=== PATIENT | female | born 1940 | race Caucasian/White ===

== ENCOUNTER 2025-06-25 15:57 | Outpatient (OUT) | payer MEDICARE, SELFPAY ==
--- OUTSIDE RECORDS SUMMARY | 2025-06-14 11:30 | XMS_ITS | Encounter Summary ---
Author Organization [facility] Address [address] [place] [address] Care Team Providers Care Repacker Name Role Phone Tari Bello MD Primary Care Provider [phone] Daniel Ye CNP Unavailable [phone] Reason for Referral * Imaging (Routine) - AuthorizedSpecialtyDiagnoses / ProceduresReferred By ContactReferred To ContactCardiology Diagnoses Nonrheumatic aortic valve stenosis Procedures Transesophageal echo (OLIVER) Sanjay Delarosa MD [address] [facility] [address] [facility] [place] [address] Phone: tel: fax: [facility] [address] [place] [address] Phone: tel: fax: Referral IDStatusReasonStart DateExpiration DateVisits RequestedVisits [id number] Perform Procedure Encounter Details DateTypeDepartmentCare Team (Latest Contact Info)Cdggkocweob06/17/2025 11:30 AM EDTFollow-Up [facility] [address] [address] Sanjay Delarosa MD [address] [facility] [address] [facility] [place] [address] Nonrheumatic aortic valve stenosis (Primary Dx); Shortness of breath; Other chest pain; Mixed hyperlipidemia; Primary hypertension Social History Tobacco UseTypesPacks/DayYears UsedDateSmoking Tobacco: NeverPassive Smoke Exposure: NeverSmokeless Tobacco: NeverAlcohol UseStandard Drinks/WeekComments Not Currently0 (1 standard drink = 0.6 oz pure alcohol)occasionally has some wine 2x monthHumiliation, Afraid, Rape, and Kick questionnaireAnswerDate RecordedWithin the last year, have you been afraid of your partner or ex-partner?No02/29/2024Emotionally AbusedNot on file02/29/2024hysically Abused Not on file02/29/2024Sexually AbusedNot on file02/29/2024HQ-2AnswerDate RecordedPatient Health Questionnaire-2 Difoz639CommentsNoSex and Gender InformationValueDate RecordedSex Assigned at DzjirVixysn56/15/2024 6:35 AM ESTLegal OubLbshqj08/29/2022 9:32 PM EDTGender JhphwoojJsirff35/15/2024 6:35 AM ESTSexual OrientationHeterosexual or Hzxhnfva58/15/2024 6:35 AM ESTdocumented as of this encounter Last Filed Vital Signs Vital SignReadingTime TakenCommentsBlood Ckpzdklx387/ 11:37 AM EDT Uauhb658806/14/2025 11:37 AM EDTTemperature--Respiratory Rate--Oxygen Saturation 100%06/14/2025 11:37 AM EDTInhaled Oxygen Concentration--Weight--Mwbqra451 cm (5' 3 )06/14/2025 11:37 AM EDTBody Mass Index--documented in this encounter Functional Status * BPAnswerDate of ZtaqwssrfqSdfphz736 11:37 AM EDTCBrittany hernandez MA * PulseAnswerDate of UcdeuzavldRwdoaj4516/ 11:37 AM Brittany Nunez MA * Patient PositionAnswerDate of VvhrldxlwvKkkcmeQfiasyx96/17/2025 11:37 AM EDT Brittany Araujo MA * BPAnswerDate of QdjfbdokggIcjxvz263/6806/14/2025 11:37 AM Brittany Nunez MA * PulseAnswerDate of DoazbrcznyDzhnnp9532 11:37 AM Brittany Nunez MA * AcA5QikwwmEtnt of QibnawjdyrAazwkb93326 11:37 AM Brittany Nunez MA * BP LocationAnswerDate of AssessmentAuthorRight arm06/14/2025 11:37 AM EDT Brittany Araujo MA * Patient PositionAnswerDate of GcrazaoinkHcxjjdRdmyhge85/17/2025 11:37 AM EDT Brittany Araujo MA documented as of this encounter Progress Notes * Sanjay Delarosa MD - 06/14/2025 11:30 AM EDT Images from the original note were not included. [place] [facility] Subjective Humera oRwe is a 84 y.o. year old female patient being seen for Valve replacement surgery per [facility] Yearly. Patient complains of chest pain, SOB/MORRISSEY, fatigue, leg swelling, with compression stockings, heart racing/palpitations, bruising/bleeding/discoloration, dizziness/lightheaded. Patient states over the last 6 months all of her symptoms have greatly increased. Patient has bladder stimulator.Patient daughter recently from a heart attach in April. Problem List[1] Family History[2] Social History[3] HPI This is a 84-year-old woman who is seen today in follow-up. This is the first time I am meeting her. The visit is in the presence of her 2 nieces. She is has a prior history of hypertension on treatment. She has history of aortic valve stenosis seems to have been progressing and on most recent echocardiogram in December 2024 she was found to have severe low-flow low gradient aortic valve stenosis. She reports that she has symptoms of chest pain located to the left side of the chest that last several minutes and subside spontaneously. She has shortness of breath on exertion NYHA class III symptoms. She has bilateral lower extremity edema. No syncope. Review of Systems Constitutional: Positive for malaise/fatigue. Cardiovascular: Positive for chest pain, dyspnea on exertion, irregular heartbeat, leg swelling andpalpitations. Hematologic/Lymphatic: Positive for bleeding problem. Objective Visit Vitals BP 156/68 (BP Location: Right arm, Patient Position: Sitting) Pulse 52 Ht 1.6 m (5' 3 ) SpO2 100% BMI 28.34 kg/m?? OB Status Hysterectomy Smoking Status Never BSA 1.8 m?? Physical Exam Constitutional: Appearance: She is well-developed. She is not ill-appearing. HENT: Head: Normocephalic and atraumatic. Nose: Nose normal. Eyes: General: No scleral icterus. Pupils: Pupils are equal, round, and reactive to light. Neck: Thyroid: No thyromegaly. Vascular: No JVD. Cardiovascular: Rate and Rhythm: Normal rate and regular rhythm. Pulses: Radial pulses are 2+ on the right side and 2+ on the left side. Heart sounds: Murmur heard. Systolic (RUSB, apex) murmur is present with a grade of 4/6. No friction rub. No gallop. Pulmonary: Effort: Pulmonary effort is normal. No respiratory distress. Breath sounds: Normal breath sounds. No wheezing or rales. Chest: Chest wall: No tenderness. Abdominal: General: Bowel sounds are normal. There is no distension. Palpations: Abdomen is soft. Tenderness: There is no abdominal tenderness. Musculoskeletal: General: No swelling. Cervical back: Neck supple. Skin: General: Skin is warm and dry. Neurological: General: No focal deficit present. Mental Status: She is alert and oriented to person, place, and time. Psychiatric: Mood and Affect: Mood normal. Behavior: Behavior is cooperative. Judgment: Judgment normal. Allergies Allergies[4] Medications Current Medications[5] Recent Labs No visits with results within 6 Month(s) from this visit. Latest known visit with results is: Admission on 04/10/2024, Discharged on 04/10/2024 Component Date Value Color, Urine 04/10/2024 Yellow Clarity, Urine 04/10/2024 Slightly Cloudy (A) pH, Urine 04/10/2024 7.0 Leukocytes, Urine 04/10/2024 Large (A) Nitrite, Urine 04/10/2024 Positive (A) Protein, Urine 04/10/2024 Negative Glucose, Urine 04/10/2024 Negative Bilirubin, Urine 04/10/2024 Negative Specific Dalton, Urine 04/10/2024 1.004 (L) Ketones, Urine 04/10/2024 Negative Blood, Urine 04/10/2024 Negative RBC, Urine 04/10/2024 0-2 (A) WBC, Urine 04/10/2024 21-50 (A) Squamous Epithelial, Uri* 04/10/2024 Occasional Blood testing 12/06/2024: Hemoglobin 12.4, platelets 168, creatinine 1.18, BUN 20, potassium 4.0, BNP 360. Imaging and other tests Echocardiogram 01/07/2025: Mild concentric left ventricular hypertrophy, ejection fraction equals 65-70%. A variety of Doppler measurements indicate normal left ventricular diastolic function. The aortic valve peak velocity is 372 cm/s. The aortic valve maximum pressure gradient is 55 mmHg. The aortic valve mean gradient is 23 mmHg. Severe valvular aortic stenosis. The aortic valve area is calculated to be 0.7 cm??. There is mild mitral regurgitation. Compared to prior echo report of 12/29/2023, changes are noted. The aortic stenosis has progressed from moderate to severe, consider valve replacement. ECG 12/27/2023: Sinus bradycardia Left axis deviation Right bundle branch block Abnormal ECG Assessment/Plan Diagnoses and all orders for this visit: Nonrheumatic aortic valve stenosis - Basic metabolic panel; Future - Case Request [place] [facility]: Coronary angiography, Left heart cath, Right heart cath - CBC and differential; Future - Transesophageal echo (OLIVER); Future Shortness of breath - Basic metabolic panel; Future - Case Request [place] [facility]: Coronary angiography, Left heart cath, Right heart cath - CBC and differential; Future Other chest pain - Basic metabolic panel; Future - Case Request [place]: Coronary angiography, Left heart cath, Right heart cath - CBC and differential; Future Mixed hyperlipidemia - lovastatin (Mevacor) 40 mg tablet; Take 1 tablet (40 mg) by mouth at bedtime. Primary hypertension She has significant symptoms of chest pain and shortness of breath NYHA class III. She seems to have progressed aortic valve stenosis to severe. According to the most recent transthoracic echocardiogram in December 2024 the aortic valve stenosis with was consistent with low-flow low gradient stage D3. On exam findings are consistent with severe stenosis. I explained to her that we need to further investigate and confirm the severity of the aortic valvestenosis. I am going to proceed with cardiac catheterization [right heart catheterizations, coronary angiography, left heart catheterization, aortic valve study] and transesophageal echocardiogram. Once we confirm the severity of the aortic valve stenosis I explained to her that we can proceed withaortic valve replacement as indicated. I had a long discussion with her regarding the management of her severe stage D3 symptomatic aorticvalve stenosis. I discussed with her that this condition leads to limited long-term survival. I indicated to her that aortic valve replacement is recommended. I discussed TAVR and SAVR including the risks and benefits of both modalities. In particular I went over TAVR procedure in details. I discuss ed the potential risks with TAVR including stroke, ID, and . I also discussed the risk of requiring permanent pacemaker after TAVR. She does have right bundle branch block on prior ECG and that increases the risk of pacemaker requirement after TAVR. In addition I indicated that there is a small chance of needing to convert to open surgical procedure due to any complications during or after TAVR procedure. In my opinion, I think that she is a higher risk patient for SAVR and is better served by TAVR. I explained to her that once aortic valve stenosis is confirmed to be severe, we will proceed with full evaluation including CT scans for assessment of the aortic annulus, ascending aorta as well as the aortoiliac conduits. In addition we will check carotid ultrasound and pulmonary function testing. I will then refer her to cardiothoracic surgery for opinion. I told her that once the workup is completed we will have a multidisciplinary discussion between interventional cardiology and cardiothoracic surgery regarding the best recommended treatment option and this option will be presented to her. she understands and agrees to proceed with the above. No follow-ups on file. Sanjay Delarosa MD [1] Patient Active Problem List Diagnosis Incomplete bladder emptying Atonic bladder Weak urinary stream Constipation Urge incontinence of urine Umbilical hernia without obstruction and without gangrene Preop cardiovascular exam Bruit of left carotid artery Aortic ejection murmur Primary hypertension Mixed hyperlipidemia Ventral hernia without obstruction or gangrene Nonrheumatic aortic valve stenosis Acquired hypothyroidism Adrenal hyperplasia Ankle pain Arthritis Atonic neurogenic bladder Atrophic vaginitis Bilateral carotid artery stenosis Bilateral tinnitus Bundle branch block, right Deafness Elevated alkaline phosphatase level Feeling of incomplete bladder emptying Female stress incontinence Head injury Hastings-Walker grade 2 rectocele History of left breast cancer Hyperthyroidism Neuropathy Obesity Osteopenia, senile Primary insomnia Renal cyst Stage 3b chronic kidney disease (CMS/HCC) Urinary retention Uses brace Shortness of breath Other chest pain [2] No family history on file. [3] Social History Tobacco Use Smoking status: Never Passive exposure: Never Smokeless tobacco: Never Vaping Use Vaping status: Never Used Substance Use Topics Alcohol use: Not Currently Comment: occasionally has some wine 2x month Drug use: Never [4] Allergies Allergen Reactions Sodium Dizziness Ascorbic Acid Other Reaction(s): Unknown Clindamycin Hives Other reaction(s): Hives Other Reaction(s): Hives, hives Clonidine Dizziness Other reaction(s): Other: See Comments Dizziness Other Reaction(s): dizziness, Other: See Comments Dizziness Milk Unknown Other Reaction(s): Unknown Niacin Other reaction(s): syncope Other Reaction(s): syncope Nitroglycerin Other reaction(s): Unknown Other Reaction(s): Unknown Sodium Iodide Other reaction(s): Other: See Comments, vertigo Vertigo Other Reaction(s): Other: See Comments, vertigo Vertigo Triamterene Hives Triamterene-Hydrochlorothiazid Hives Other reaction(s): hives Other Reaction(s): hives, hives [5] Current Outpatient Medications: amLODIPine (Norvasc) 2.5 mg tablet, Take 1 tablet by mouth in the morning., Disp: , Rfl: ascorbic acid (Vitamin C) 500 mg tablet, Take 500 mg by mouth in the morning., Disp: , Rfl: aspirin 325 mg tablet, Take 325 mg by mouth if needed., Disp: , Rfl: calcium carbonate-vitamin D3 600 mg-5 mcg (200 unit) tablet, 1 tablet., Disp: , Rfl: carvedilol (Coreg) 3.125 mg tablet, TAKE TABLET BY MOUTH DIRECTED TWICE DAILY, Disp: , Rfl: cholecalciferol (Vitamin D-3) 25 MCG (1000 UT) capsule, Take 1 capsule every day by oral route., Disp: , Rfl: cod liver oiL capsule, Take by mouth., Disp: , Rfl: coenzyme Q-10 (Co Q-10) 10 mg capsule, Take by mouth., Disp: , Rfl: diphenhydrAMINE (BENADryl) 50 mg tablet, Take 50 mg by mouth if needed at bedtime for itching., Disp: , Rfl: docusate sodium (Colace) 100 mg capsule, Take by mouth., Disp: , Rfl: estradiol (Estrace) 0.01 % (0.1 mg/gram) vaginal cream, Insert 1 g twice a week by vaginal route donot use applicator, Disp: 42.5 g, Rfl: 0 ibuprofen 200 mg tablet, Take 200 mg by mouth every 6 (six) hours if needed for mild pain (1-3 painscore)., Disp: , Rfl: levothyroxine (Synthroid, Levoxyl) 75 mcg tablet, Take 1 tablet by mouth in the morning., Disp: , Rfl: lisinopril 10 mg tablet, 10 mg in the morning and at bedtime., Disp: , Rfl: multivit-min/ferrous fumarate (MULTI VITAMIN ORAL), 1 (one) time each day at the same time., Disp: , Rfl: nystatin, bulk, 1 billion unit powder, 1 Application twice a day., Disp: 1 each, Rfl: 2 omega 8-dif-jkr-fish oil 300 mg-100 mg- 150 mg-1,000 mg capsule, Take 1,000 mg by mouth., Disp: , Rfl: oxyBUTYnin XL (Ditropan-XL) 5 mg 24 hr tablet, Take 5 mg by mouth in the morning., Disp: , Rfl: estradiol (Estrace) 0.01 % (0.1 mg/gram) vaginal cream, Disregard three times a week use 2 times per week Tuesday and Tuesday use a pea size amount and insert vaginally do not use applicator (Patient not taking: Reported on 06/14/2025), Disp: 42.5 g, Rfl: 5 estradiol (Estrace) 0.01 % (0.1 mg/gram) vaginal cream, Apply pea size on the tip of the finger nightly for 3 weeks, then 2 times per week. (Patient not taking: Reported on 06/14/2025), Disp: 42.5 g,Rfl: 1 lactulose 10 gram/15 mL (15 mL) solution, Take 15 mL by mouth once daily as directed. (Patient not taking: Reported on 06/14/2025), Disp: 473 mL, Rfl: 2 lovastatin (Mevacor) 40 mg tablet, Take 1 tablet (40 mg) by mouth at bedtime., Disp: 90 tablet, Rfl: 3 documented in this encounter Plan of Treatment DateTypeDepartmentCare Team (Latest Contact Info)Hzhdxegmquy64/03/2025 2:00 PM ESTOffice Visit [facility] [address] [place] [address] Sanjay Delarosa MD [address] [facility] [address] [facility] [place] [address] 07/05/2025 2:30 PM ESTFollow-Up [facility] [address] [place] [address] Brissa Potter MD [address] [facility] [address] [place] [address] NameTypePriorityAssociated DiagnosesOrder ScheduleBasic metabolic panelLab Routine Nonrheumatic aortic valve stenosis Shortness of breath Other chest pain Expected: 06/14/2025 (Approximate), Expires: 06/14/2026BC and differentialLab Routine Nonrheumatic aortic valve stenosis Shortness of breath Other chest pain Expected: 06/14/2025 (Approximate), Expires: 06/14/2026documented as of this encounter Results * TRANSESOPHAGEAL ECHO (OLIVER) W/ LIMITED DOPPLER AND COLOR FLOW (06/18/2025 9:53 AM EDT)Anatomical RegionLateralityModalityOtherSpecimen (Source)Anatomical Location / LateralityCollection Method / VolumeCollection TimeReceived Time 06/18/2025 8:45 AM EDT Narrative 06/18/2025 7:31 PM EDT 1 [facility] Heart Station [address] [place] [address] [phone] (fax) Transesophageal Echocardiogram-[facility] Name: HUMERA ROWE Study Date: 06/18/2025 08:45 AM B/P: 142 mmHg/57 mmHg HR: Date of : 1940 Location: [facility] Height: 63 in. Age: 84 year(s) Patient Room: [facility] VASCULAR POOL Weight: 160 lb. Gender: Female Patient Status: OutPt BSA: 1.76 m2 Indication: Aortic Valve Stenosis Examination: OLIVER/Limited Doppler/CFI Image Quality: Good Patient Consent: Informed, written consent was obtained for the procedure Exam Location: A OLIVER was performed in the [place] without complications Anesthesia Pharyngeal anesthesia with viscous Lidocaine Conclusions Left Ventricle: The left ventricle is normal size. Global left ventricular systolic function is normal. The EF is 55 % visually. Interventricular septal thickness is increased in the proximal portion. No regional wall motion abnormality. Left Ventricular Measurements LVSV_LVOT: 49 ml. Right Ventricle: The right ventricle is normal in size. Normal right ventricular systolic function. Left Atrium: The left atrium appears enlarged. Left Atrium Appendage: Normal left atrial appendage, no thrombus seen. IAS: No intracardiac shunt by Doppler color flow. Mitral Valve: Mild to moderate mitral regurgitation. Aortic Valve: Restricted opening movement of the aortic valve is present. Trivial aortic valve regurgitation. Severe aortic valve stenosis. Aortic Valve Measurements AV PGmean: 26.00 mmHg. NEGRO D (continuity eq. Vmax): 0.7 cm??. LVOT VTI / AV VTI: 0.23. Tricuspid Valve: Mild tricuspid regurgitation. Aorta: Mild to moderate atherosclerotic plaque is seen in the aorta. Overall Conclusions: Severe paradoxical low flow low gradient aortic valve stenosis. LV stroke volume index 28 ml/m2. Medications Date Time Name Route Form Dose Units Ordered By Given By Comment 06/18/2025 09:54 AM Midazolam HCL (Versed) 2 milligrams 06/18/2025 09:54 AM Fentanyl (Opiates) 37.5 micrograms Measurements Left Ventricle Label Value Normal Value LVOTd 1.8 cm (18cm - 20cm) LVOT VTI 19.4 cm (18cm - 22cm) LVOT PGmax 3 mmHg LVEF visual 55 % LVOT PGmean 1 mmHg LVSV_LVOT 49 ml Aortic Valve Label Value Normal Value AV DVI 0.26 AV VTI 84.5 cm Tricuspid Valve Label Value Normal Value TR Vmax 3.29 m/s Valvular Assessment LVOT 0.7 - 1.1 m/sec Aortic Valve 1.0 - 1.7 m/sec Mitral Valve 0.6 - 1.3 m/sec Tricuspid Valve 0.3 - 0.7 m/sec Pulmonic Valve 0.6 - 0.9 m/sec Regurgitation Trivial MildMod Mild Trivial Stenosis Severe Max Velocity 0.80 m/sec 3.10 m/s Max Gradient 38.00 mmHg Mean Gradient 26.00 mmHg Valve Area 0.7 cm?? Findings Left Ventricle: The left ventricle is normal size. Global left ventricular systolic function is normal. The EF is 55 % visually. Interventricular septal thickness is increased in the proximal portion. No regional wall motion abnormality. Left Ventricular Measurements LVSV_LVOT: 49 ml. Right Ventricle: The right ventricle is normal in size. Normal right ventricular systolic function. Left Atrium: The left atrium appears enlarged. Left Atrium Appendage: Normal left atrial appendage, no thrombus seen. IAS: No intracardiac shunt by Doppler color flow. Right Atrium: The right atrium appears normal in size. Mitral Valve: There is nonspecific thickening of the mitral valve leaflet. Mild to moderate mitral regurgitation. Aortic Valve: Aortic valve is tri-leaflet. Restricted opening movement of the aortic valve is present. Severe aortic valve calcification is present. Trivial aortic valve regurgitation. Severe aortic valve stenosis. Aortic Valve Measurements AV PGmean: 26.00 mmHg. NEGRO D (continuity eq. Vmax): 0.7 cm??. LVOT VTI / AV VTI: 0.23. Tricuspid Valve: Normal tricuspid valve. Mild tricuspid regurgitation. Pulmonic Valve: Normal pulmonary valve. Trivial pulmonary regurgitation. Aorta: Mild to moderate atherosclerotic plaque is seen in the aorta. The aortic root exhibits normal size. Pericardium: No pericardial effusion. The Attending Physician was present and personally reviewed the examination Procedure Staff Reading Group: [facility] Home Management Supervisor: Sunita Davenport RDCS ??Ordering Physician: Sanjay Delarosa MD Procedure Note Sanjay Delarosa MD - 06/18/2025 1 [facility] Heart Station [address] [place] [address] [phone] (fax) Transesophageal Echocardiogram-[facility] Name: HUMERA ROWE Study Date: 06/18/2025 08:45 AM B/P: 142 mmHg/57 mmHg HR: Date of : 1940 Location: [facility] Height: 63 in. Age: 84 year(s) Patient Room: [facility] VASCULAR POOL Weight: 160 lb. Gender: Female Patient Status: OutPt BSA: 1.76 m2 Indication: Aortic Valve Stenosis Examination: OLIVER/Limited Doppler/CFI Image Quality: Good Patient Consent: Informed, written consent was obtained for the procedure Exam Location: A OLIVER was performed in the [place] without complications Anesthesia Pharyngeal anesthesia with viscous Lidocaine Conclusions Left Ventricle: The left ventricle is normal size. Global left ventricular systolic function is normal. The EF is 55 % visually. Interventricular septal thickness is increased in the proximal portion. No regional wall motion abnormality. Left Ventricular Measurements LVSV_LVOT: 49 ml. Right Ventricle: The right ventricle is normal in size. Normal right ventricular systolic function. Left Atrium: The left atrium appears enlarged. Left Atrium Appendage: Normal left atrial appendage, no thrombus seen. IAS: No intracardiac shunt by Doppler color flow. Mitral Valve: Mild to moderate mitral regurgitation. Aortic Valve: Restricted opening movement of the aortic valve is present. Trivial aortic valve regurgitation. Severe aortic valve stenosis. Aortic Valve Measurements AV PGmean: 26.00 mmHg. NEGRO D (continuity eq. Vmax): 0.7 cm??. LVOT VTI / AV VTI: 0.23. Tricuspid Valve: Mild tricuspid regurgitation. Aorta: Mild to moderate atherosclerotic plaque is seen in the aorta. Overall Conclusions: Severe paradoxical low flow low gradient aortic valve stenosis. LV stroke volume index 28 ml/m2. Medications Date Time Name Route Form Dose Units Ordered By Given By Comment 06/18/2025 09:54 AM Midazolam HCL (Versed) 2 milligrams 06/18/2025 09:54 AM Fentanyl (Opiates) 37.5 micrograms Measurements Left Ventricle Label Value Normal Value LVOTd 1.8 cm (18cm - 20cm) LVOT VTI 19.4 cm (18cm - 22cm) LVOT PGmax 3 mmHg LVEF visual 55 % LVOT PGmean 1 mmHg LVSV_LVOT 49 ml Aortic Valve Label Value Normal Value AV DVI 0.26 AV VTI 84.5 cm Tricuspid Valve Label Value Normal Value TR Vmax 3.29 m/s Valvular Assessment LVOT 0.7 - 1.1 m/sec Aortic Valve 1.0 - 1.7 m/sec Mitral Valve 0.6 - 1.3 m/sec Tricuspid Valve 0.3 - 0.7 m/sec Pulmonic Valve 0.6 - 0.9 m/sec Regurgitation Trivial MildMod Mild Trivial Stenosis Severe Max Velocity 0.80 m/sec 3.10 m/s Max Gradient 38.00 mmHg Mean Gradient 26.00 mmHg Valve Area 0.7 cm?? Findings Left Ventricle: The left ventricle is normal size. Global left ventricular systolic function is normal. The EF is 55 % visually. Interventricular septal thickness is increased in the proximal portion. No regional wall motion abnormality. Left Ventricular Measurements LVSV_LVOT: 49 ml. Right Ventricle: The right ventricle is normal in size. Normal right ventricular systolic function. Left Atrium: The left atrium appears enlarged. Left Atrium Appendage: Normal left atrial appendage, no thrombus seen. IAS: No intracardiac shunt by Doppler color flow. Right Atrium: The right atrium appears normal in size. Mitral Valve: There is nonspecific thickening of the mitral valve leaflet. Mild to moderate mitral regurgitation. Aortic Valve: Aortic valve is tri-leaflet. Restricted opening movement of the aortic valve is present. Severe aortic valve calcification is present. Trivial aortic valve regurgitation. Severe aortic valve stenosis. Aortic Valve Measurements AV PGmean: 26.00 mmHg. NEGRO D (continuity eq. Vmax): 0.7 cm??. LVOT VTI / AV VTI: 0.23. Tricuspid Valve: Normal tricuspid valve. Mild tricuspid regurgitation. Pulmonic Valve: Normal pulmonary valve. Trivial pulmonary regurgitation. Aorta: Mild to moderate atherosclerotic plaque is seen in the aorta. The aortic root exhibits normal size. Pericardium: No pericardial effusion. The Attending Physician was present and personally reviewed the examination Procedure Staff Reading Group: [facility] Management Supervisor: Sunita Davenport RDCS Ordering Physician: Sanjay Delarosa MD Authorizing ProviderResult TypeResult StatusGeorge Isaura [facility] [place] ECHO PROCEDURESFinal Result documented in this encounter Visit Diagnoses Diagnosis Nonrheumatic aortic valve stenosis- Primary Shortness of breath Other chest pain Mixed hyperlipidemia Primary hypertension Unspecified essential hypertension documented in this encounter Care Teams Team MemberRelationshipSpecialtyStart DateEnd Date Langley-Tari Morgan MD [address] [place] [address] PCP - General03/28/23 Daniel Ye CNP [address] [place] [address] Nurse PractitionerUrology05/05/23documented as of this encounter
--- OUTSIDE RECORDS SUMMARY | 2025-06-17 20:36 | XMS_ITS | Continuity of Care Document ---
Author Organization [facility] Address [address] [place] [address] Phone Care Team Providers Care Size Marker Name Role Phone Tari Bello DO Primary Care Provider Sanjay Delarosa MD Attending Provider Care Teams Patient Care Team Team Status: Active Member Role/Relationship Status Dates Tari Bello DO Primary Care Provider Active Visit Care Team Team Status: Inactive Member Role/Relationship Status Dates Tari Bello DO Primary Care Provider Active Start: June 17, 2025 End: June 17, 2025GeorChacho Escalante ProviderActiveStart: June 17, 2025 End: June 17, 2025 Chief Complaint and Reason for Visit Chief Complaint Admit Date I35.0 R06.02 R07.89 June 17, 2025 1 1:28am Allergies, Adverse Reactions, Alerts Allergen Type Severity Reaction Last Updated Verified Status clindamycin Allergy Unknown Hives December 06, 2024 1:24pm Yes Active lactose Allergy Unknown Unknown Reaction December 06, 2024 1:24pm Yes Active sodium benzoate Allergy Unknown Unknown Reaction December 06, 2024 1:24pm Yes Active clonidine Allergy Unknown Dizziness December 06, 2024 1:24pm Yes Active hydrochlorothiazide Allergy Unknown Hives December 06, 2024 1:24pm Yes Active Milk Containing Products (Dairy) Allergy Unknown Difficulty Breathing December 06, 2024 1:24pm Yes Active sodium iodide Allergy Unknown Dizziness December 06, 2024 1:24pm Yes Active triamterene Allergy Unknown Hives December 06, 2024 1:24pm Yes Active clindamyacin Allergy Unknown Unknown Reaction March 04, 2024 12:05pm No Active roses and all milk products. Allergy Unknown Unknown Reaction March 04, 2024 12:05pm No Active Social History Smoking Status Status Start Date End Date Date of Observa tion Never smoked tobacco (finding) December 06, 2024 2:12pm Observation Status Observation Response Date of Response Legal Sex Female (finding) Sex Assigned At BirthFemaleApril 1940 Family History Relationship Condition Age at Onset Recorded Date/T nelson mother Myocardial infarction Unknown fatherMalignant neoplasm of stomachUnknownbrotherDeceasedUnknownfatherDeceased UnknownmotherDeceasedUnknownsisterDeceasedUnknown Problems Inactive/Resolved Problems Problem Diagnosis/Recorded Date Onset Date Status C omments Nonspecific abdominal pain February 13, 2023 1:21pm Unknown Resolved Problem L ist clean-up per request of Phys. EHR Cmte Acute cystitis with hematuria March 04, 2024 1:31pm Unknown Resolved Other acute postprocedural painMarch 2021 10:10amUnknownResolvedProblem List clean-up per request of Phys. EHR CmteMalignant neoplasm of upper-outer quadrant of left female breastMarch 2021 1:21pmUnknownResolvedProblem List clean-up per request of Phys. EHR CmteBacteriuriaJune 2022 1:21pmUnknown ResolvedProblem List clean-up per request of Phys. EHR CmteFoley catheter problemJune 2022 2:00pmUnknownResolvedProblem List clean-up per request of Phys. EHR CmteRash and nonspecific skin eruptionMarch 2022 9:55amUnknown ResolvedProblem List clean-up per request of Phys. EHR CmteStatus post left mastectomyMarch 2021 7:46amUnknownResolvedProblem List clean-up per request of Phys. EHR CmteAbdominal painMay 2022 2:40pmUnknownResolved Problem List clean-up per request of Phys. EHR CmteHypertensionApril 2024 4:13pmUnknownResolvedAbdominal pain of unknown causeJuly 2022 9:56pm UnknownResolvedComplication of Hoffmann catheterMay 2022 10:47pmUnknown ResolvedProblem List clean-up per request of Phys. EHR CmteBladder outlet obstructionMay 2022 3:02pmUnknownResolvedProblem List clean-up per request of Phys. EHR Cmte Medications Medication Status Dose Units Route Directions Qty Days Refills S tart Date Stop Date End Date Reason(s) Instructions Adherence Prednisone 20 mg tablet Discontinued 40 MG PO Darcy ly 10 0March 2022 12:00amMay 2022 12:48pmIbuprofen 600 mg tablet Uvnvnifszeet797SJENUxzvx 6 hours as needed for Ovue928Flq 2022 12:00amJuly 2022 7:59amdo not exceed 4 doses in a 24 hour periodCephalexin 500 mg xphszjhIoblzseotuhh0975YMKWE84W17766Rbt 2022 12:00amJuly 2022 7:59am Ibuprofen 600 mg yxlfwiMnqnkohywoos814FBYSI3N as needed for fever or zcrz852Pqgg 2022 12:00amJuly 2022 7:59amCephalexin 500 mg becurskIbrwrdrxbnad343GF POTwice xkqlv3103Aifs 2022 12:00amJuly 2022 7:59amSulfamethoxazole- Trimethoprim (Bactrim Ds) 800-160 mg NxowpiRcueykicqsjq1CGEFAJbxqm xhmfg420Dkkm 2022 12:00amJuly 2022 8:00amtake with foodHydrocodone-Acetaminophen 5-325 mg cgfgeoKasjaoofhias8GYIGNDxmsx daily as needed for unsw1124Cfxw 2022July 2022 7:59amAbdominal pain Unspecified abdominal painCephalexin 500 mg kilivqtDubnsb571LFHHGjlfr times kaizj493Ztdx 2023 12:00amUnknownAmlodipine 2.5 mg tabletActive2.5MGPOEvery morningMarch 2021 12:00amUnknownCalcium Carbonate-Vitamin D3 600 mg-5 mcg (200 unit) LhttwnOtkfzu3XUCEWYsbnk times dailyMar 2021 12:00amUnknown Carvedilol 3.125 mg tabletActive3.125MGPOTwice dailyMagruder [facility] Hospital 2021 12:00am UnknownLevothyroxine 75 mcg ebtfhfXtzpxu11AONRJPsccl morningMar 2021 12:00amUnknownLisinopril 10 mg TezxakIparae45DHTYSyhly dailyMagruder Memorial Hospital 2021 12:00amUnknownOxybutynin Chloride 5 mg tablet extended release 24 jfJcrnpg4YJXD Every morningMagruder Memorial Hospital 2021 12:00amUnknownLovastatin 20 mg feczkjNspvgp47WOCI DailyMagruder Memorial Hospital 2021 12:00amUnknownHydrocodone-Acetaminophen 5-325 mg Tablet Qcsivsbamora7HMUWQO8Q as needed for Enxg3526Earel 2021[facility] 2022 9:41amOther acute postprocedural pain Other acute postprocedural painIbuprofen 600 mg uemwlmVxhzov153EDFXRszqu 6 hours as needed for Pbpn112Wzfb 2022 12:00amdo not exceed 4 doses in a 24 hour periodUnknown Relevant Diagnostic Tests and/or Laboratory Data Laboratory Results Test Collection Date/Time Result Date/Time Result Interpretation Reference Range Result Comment Performing Site Corrected White Blood Count June 17, 2025 11:36am June 17, 2025 12:46pm 5.1 10*3/uL 3.8-11.6F[facility] [id number] [address] [facility] [address]Fpzlmufzihb WBC CountOctober 2024 11:36amOctober 2024 12:46pm5.1 10*3/uL3.8-11.6FProMedica [facility] [id number] [address] [facility] [address]Vli Blood CountOctrobley rex va [facility] 2024 11:36amOctober 2024 12:46pm3.61 10*6/uL3.60-5.00[facility] [id number] [address] [facility] [address]IusthkvplqZzsuyyj 20th, 2025 11:36amOctober 2024 12:46pm 12.0 g/dL11.8-15.4FProMedica [facility] [id number] [address] [facility] [address]NazrumfgatEdnriqk 2024 11:36amOctober 2024 12:46pm 35.5 %34.0-46.4FProMedica [facility] [id number] [address] [facility] [address]Afaz Corpuscular VolumeOctober 2024 11:36amOctober 2024 12:46pm98.5 iX25-424RdpzcszygNorwalk Memorial Hospital Ctr [id number] [address] [facility] [address]Qyek Corpuscular HemoglobinOctober 2024 11:36amOctober 2024 12:46pm33.2 pg24.7-34.3FProMedica [facility] [id number] [address] [facility] [address]Eolg Corpuscular Hemoglobin ConcentOctober 2024 11:36am June 17, 2025 12:46pm33.7 g/dL32.0-35.0[facility] [id number] [address] [facility] [address]Tlj Cell Distribution WidthOctober 2024 11:36amOctober 2024 12:46pm14.0 %11.9-15.3FProMedica [facility] [id number] [address] [facility] [address]Veuhtdwm CountOctober 2024 11:36amOctober 2024 12:37lr305 10*3/uLBelow low -878IlobcuuazNorwalk Memorial Hospital Ctr [id number] [address] [facility] [address]Kjxi Platelet VolumeOctober 2024 11:36amOctober 2024 12:46pm10.1 fL6.3-10.7FProMedica [facility] [id number] [address] [facility] [address]Iobboxndzgy (%) (Auto)June 17, 2025 11:36amOctober 2024 12:46pm53.9 %.[facility] [id number] [address] [facility] [address]Ejghyiairhd (%) (Auto)June 17, 2025 11:36amOctober 2024 12:46pm31.7 %.[facility] [id number] [address] [facility] [address]Xqdfhhxer (%) (Auto)June 17, 2025 11:36amOctober 2024 12:46pm11.0 %.[facility] [id number] [address] [facility] [address]Zxnnshjxbek (%) (Auto)June 17, 2025 11:36amOctober 2024 12:46pm2.8 %.[facility] [id number] [address] [facility] [address]Utdqtfxfd (%) (Auto)June 17, 2025 11:36amOctober 2024 12:46pm0.6 %.[facility] [id number] [address] [facility] [address]Orrctwcwr RBC Relative Count (auto)June 17, 2025 11:36am June 17, 2025 12:46pm0.0 /100{WBC}0-0.5FProMedica Fostoria [facility] [id number] [address] [place] [address]Elceisxvhyd # (Auto)June 17, 2025 11:36amOctober 2024 12:46pm2.8 10*3/uL1.8-7.7FProMedica Fostoria [facility] [id number] [address] [place] [address]Jysrodekgfn # (Auto)June 17, 2025 11:36amOctober 2024 12:46pm1.6 10*3/uL1.00-4.8[facility] [id number] [address] [place] [address]Kwtaggvrp # (Auto)June 17, 2025 11:36amOctober 2024 12:46pm0.6 10*3/uL0.0-0.8[facility] [id number] [address] [place] [address]Frghhxqgpqk # (Auto)June 17, 2025 11:36amOctober 2024 12:46pm0.1 10*3/uL0.0-0.45[facility] [id number] [address] [place] [id number] # (Auto)June 17, 2025 11:36amOctober 2024 12:46pm0.0 10*3/uL0.0-0.2FProMedica Fostoria [facility] [id number] [address] [facility] [address]Nncibzh LevelOctober 2024 11:36amOctober 2024 1:01pm95 mg/wS78-296WGH recommended reference rangeRandom Glucose Reference Range is dependent on time and content of last meal. Glucose of more than 200 mg/dL in a nonstressed, ambulatory subject supports the diagnosisof Diabetes Mellitus.[facility] [id number] [address] [facility] [address]Pmslr Urea NitrogenOctober 2024 11:36amOctober 2024 1:01pm20 mg/dL7-25[facility] [id number] [address] [place] [address]CreatinineOctober 2024 11:36amOctober 2024 1:01pm 1.22 mg/dLAbove high normal0.60-1.20[facility] [id number] [address] [facility] [address]Rwfgtamuo GFR (CKD-EPI)June 17, 2025 11:36amOctober 2024 1:01pm43.489 mL/MinNorwalk Memorial Hospital Ctr [id number] [address] [facility] [address]Jmxhon LevelOctober 2024 11:36amOctober 2024 1:01pm 137 mmol/R978-620RmmhbtrqwNorwalk Memorial Hospital Ctr [id number] [address] [facility] [address]Tbovbmbij LevelOctober 2024 11:36amOctober 2024 1:01pm4.7 mmol/L3.5-5.1FProMedica Fostoria [facility] [id number] [address] [facility] [address]Mwpmeasx LevelOctober 2024 11:36amOctober 2024 1:44ce135 mmol/B96-110AfivzukolNorwalk Memorial Hospital Ctr [id number] [address] [facility] [address]Feeyni Dioxide LevelOctober 2024 11:36amOctober 2024 1:01pm30.0 mmol/L21.0-31.0[facility] [id number] [address] [facility] [address]Ksvyj GapOctober 2024 11:36amOctober 2024 1:01pm7.7 mEq/L6.0-15.0[facility] [id number] [address] [facility] [address]Xvrvaiw LevelOctober 2024 11:36amOctober 2024 1:01pm8.8 mg/dL8.6-10.3FProMedica [facility] [id number] [address] [facility] [address]Jowdpcrc Creatinine Clearance (ChemOctober 2024 11:36am June 17, 2025 1:01pmN/[facility] [id number] [address] [facility] [address] Advance Directives Advance Directive Response Recorded Date/ Time Advance Directives Yes June 20, 2020 1:47pm Insurance Providers Guarantor Humera Avalos Address [address] [place] [address]Nxbiutk Info.Home Phone: Payer Group Member ID Coverage Type Subscriber Relationship to Subscriber Effective Date Expiration Date Dejuan REGALADO/TAE Id: [id number] E Bailey Id: [id number] [address] [place] [address] Home Phone: SelfMedicare [id number] E Bailey Id: [id number] [address] [place] [address] [facility]: [id number] E Bailey Id: [id number] [address] [place] [address] [facility] Phone[facility]: [id number] E Ries Id: [id number] [address] [place] [address] Home Phone: Self Encounters Encounter Location(s) Arrival/Admit Date Discharge/Departure Date Discharge/Departure Disposition Provider(s) Departed Clinical -Lab [facility] June 17, 2025 11:28am June 17, 2025 11:29am Discharged to home care or self care (routine discharge) Sanjay Inman MD
--- OUTSIDE RECORDS SUMMARY | 2025-06-18 07:36 | XMS_ITS | Encounter Summary ---
Author Organization [facility] Address [address] [facility] [place] [address] Care Team Providers Care Dimethylaniline Sulfator Operator Name Role Phone Tari Bello MD Primary Care Provider [phone] Daniel Ye CNP Unavailable [phone] Reason for Referral * Consultation (Routine) - ClosedSpecialtyDiagnoses / ProceduresReferred By ContactReferred To ContactCardiopulmonary Rehab / CardioPulmonary Rehab Diagnoses Nonrheumatic aortic valve stenosis Procedures [place] OFFICE/OUTPATIENT [facility] 60 MINUTES Vamsi Garcia MD [address] [place] [address] Phone: tel: fax: [facility] [address] [place] [address] [place] [address] Phone: tel: fax: Referral IDStatusReasonStart DateExpiration DateVisits RequestedVisits [id number] Specialty Services Required * Imaging (Routine) - AuthorizedSpecialtyDiagnoses / ProceduresReferred By ContactReferred To ContactCardiology Diagnoses Nonrheumatic aortic valve stenosis Procedures Transesophageal echo (OLIVER) Sanjay Delarosa MD [address] [facility] [address] [place] [address] Phone: tel: fax: [facility] [address] [place] [address] Phone: tel: fax: Referral IDStatusReasonStart DateExpiration DateVisits RequestedVisits [id number] Perform Procedure * (Routine) - Pending ReviewSpecialtyDiagnoses / ProceduresReferred By Contact Referred To Contact Procedures Electrocardiogram, 12-lead Sanjay Delarosa MD [address] [place] [address] Phone: tel: fax: Referral IDStatusLaurenasonStart DateExpiration DateVisits RequestedVisits [id number] [id number]/ Reason for Visit * Auth/Cert (Routine)SpecialtyDiagnoses / ProceduresReferred By ContactReferred To Contact Diagnoses Nonrheumatic aortic valve stenosis Shortness of breath Other chest pain Nonrheumatic aortic valve stenosis [I35.0] Shortness of breath [R06.02] Other chest pain [R07.89] Procedures VT OFFICE/OUTPT VISIT,PROCEDURE ONLY VT OFFICE/OUTPT VISIT,PROCEDURE ONLY Coronary angiography Left heart cath Right heart cath Sanjay Delarosa MD [address] [place] [address] Phone: tel: fax: [facility] [address] [place] [address] Phone: tel: fax: Referral IDStatReayaanStstephanie DateExpiration DateVisits RequestedVisits [id number] Encounter Details DateTypeDepartmentCare Team (Latest Contact Info)Pvailaczxuj95/21/2025 7:36 AM EDT - 06/18/2025 2:55 PM EDTHospital Encounter [facility] [address] [place] [address] Sanjay Delarosa MD [address] [facility] [address] [facility] [place] [address] Nonrheumatic aortic valve stenosis; Shortness of breath; Other chest pain Discharge Disposition: Home or Self Care () Social History Tobacco UseTypesPacks/DayYears UsedDateSmoking Tobacco: NeverPassive Smoke Exposure: NeverSmokeless Tobacco: NeverAlcohol UseStandard Drinks/WeekComments Not Currently0 (1 standard drink = 0.6 oz pure alcohol)occasionally has some wine 2x monthHumiliation, Afraid, Rape, and Kick questionnaireAnswerDate RecordedWithin the last year, have you been afraid of your partner or ex-partner?No02/29/2024Emotionally AbusedNot on file02/29/2024hysically Abused Not on file02/29/2024Sexually AbusedNot on file02/29/2024HQ-2AnswerDate RecordedPatient Health Questionnaire-2 Qxoce805CommentsNoSex and Gender InformationValueDate RecordedSex Assigned at NjbawHydgya55/15/2024 6:35 AM ESTLegal ZvcFukiyr72/29/2022 9:32 PM EDTGender PewehihnWsxhnp83/15/2024 6:35 AM ESTSexual OrientationHeterosexual or Oiurqluk45/15/2024 6:35 AM ESTdocumented as of this encounter Last Filed Vital Signs Vital SignReadingTime TakenCommentsBlood Vivhygkk764/5610 2:45 PM EDT Gbatg5294 2:45 PM EDTTemperature--Respiratory Jjlm5999/ 2:45 PM EDTOxygen Hdiydwasrn365%06/18/2025 2:45 PM EDTInhaled Oxygen Concentration-- Kdpile23.9 kg (143 lb)06/18/2025 8:10 AM RWWAcdwnd332 cm (5' 3 )06/18/2025 8:10 AM EDTBody Mass Index25.331 8:10 AM EDTdocumented in this encounter Functional Status * QuestionAnswerDate of UalayouqqzQsnxzsTK119/561 2:45 PM Jackie Anguiano RNPulse4706/18/2025 2:45 PM Jackie Anguiano RN * Pain Assessment TimerQuestionAnswerDate of AssessmentAuthorRestart Pain Assessment VzcnqYqc14/21/2025 2:45 PM Jackie Anguiano RN * Sepsis Model ScoresQuestionAnswerDate of AssessmentAuthorEarly Detection of Sepsis Score1. 2:46 PM Hortensia Denton * Pain AssessmentQuestionAnswerDate of AssessmentAuthorPain AssessmentNo/denies pain06/18/2025 2:45 PM Jackie Anguiano RN * Patient PositionAnswerDate of JxihgrojsrIyompbYsnomsj88/17/2025 11:37 AM EDT Brittany Araujo MA * QuestionAnswerDate of AssessmentAuthorPulse rate from Plethysmogram (bpm)46 06/18/2025 2:30 PM Jackie Anguiano RN * Vital SignsQuestionAnswerDate of AufysfefwdIbueiqZD017/561 2:45 PM Jackie Anguiano SNEiprj6519/21/2025 2:45 PM Jackie Anguiano RNResp16 06/18/2025 2:45 PM Jackie Anguiano RNSpO21001 2:45 PM Jackie Anguiano RNMAP (mmHg)7606/18/2025 2:30 PM Jackie Anguiano RN * Peripheral VascularQuestionAnswerDate of AssessmentAuthorPulsesLeft pedal;Right pedal;Left posterior tibial;Right posterior rejbaa1006/18/2025 7:41 AM Jackie Anguiano RNEdemaOther (Comment)06/18/2025 8:11 AM Jackie Anguiano RN * RLE Neurovascular AssessmentQuestionAnswerDate of AssessmentAuthorRight Posterior Tibial Pulse+110 8:11 AM Jackie Anguiano RNRight Pedal Pulse+ 8:11 AM Jackie Anguiano RN * LLE Neurovascular AssessmentQuestionAnswerDate of AssessmentAuthorLeft Posterior Tibial Pulse+ 8:11 AM Jackie Anguiano RNLeft Pedal Pulse+ 8:11 AM Jackie Anguiano RN * BP LocationAnswerDate of AssessmentAuthorRight arm06/14/2025 11:37 AM EDT Brittany Araujo MA * RespiratoryQuestionAnswerDate of AssessmentAuthorBilateral Breath Sounds Clear;Uxtoonwchj82/21/2025 7:41 AM Jackie Anguiano RNRespiratory Effort Yzvvbtaow43/21/2025 7:41 AM Jackie Anguiano RNRespiratory Depth/Rhythm Bxsdkpx7006/18/2025 7:41 AM Jackie Anguiano RNBreath SoundsBilateral breath xcjmux3606/18/2025 7:41 AM Jackie Anguiano RN * NeurologicalQuestionAnswerDate of AssessmentAuthorLevel of ConsciousnessAlert 06/18/2025 12:00 PM Lauren Hernandez RNOrientation LevelOriented X4 06/18/2025 12:00 PM Lauren Hernandez RNCognitionAppropriate judgement 06/18/2025 12:00 PM Lauren Hernandez RNSpeechClear1 12:00 PM EDT Lauren Hollis RN * Pain AssessmentQuestionAnswerDate of AssessmentAuthorPain AssessmentNo/denies pain06/18/2025 2:45 PM Jackie Anguiano RN * [place] Suicide Severity Rating ScaleQuestionAnswerDate of AssessmentAuthor1. Have you wished you were or wished you could go to sleep and not wake up?No06/18/2025 7:41 AM Jackie Anguiano RN2. Have you actually had any thoughts of killing yourself?No06/18/2025 7:41 AM Jackie Anguiano RN6. Have you ever done anything, started to do anything, or prepared to do anything to end your life?No06/18/2025 7:41 AM Jackie Anguiano RN * Risk of SuicideAnswerDate of AssessmentAuthorNo Risk06/18/2025 7:41 AM EDT Jackie Crawley RN * Patient PositionAnswerDate of OwgaowonbsCpwccrGsbmlmq87/17/2025 11:37 AM EDT Brittany Araujo MA * Modified AldreteQuestionAnswerDate of OdcoutpsptYcjgzeJbodwalw430/21/2025 2:43 PM Jackie Anguiano RNRespiration 2:43 PM Jackie Anguiano RN Dwgcdtsqjui750/21/2025 2:43 PM Jackie Anguiano RNConsciousness 2:43 PM Jackie Anguiano RNOxygen Ymyxndxzrr406/21/2025 2:43 PM Jackie Anguiano RNModified Antoine Oxenw7033/21/2025 2:43 PM Jackie Anguiano RN documented as of this encounter Mental Status * Cai Agitation Sedation ScaleQuestionAnswerEntry DateAuthorRichmond Agitation Sedation Scale (RASS)- 12:42 PM Duke Riley RN * Modified AldreteQuestionAnswerEntry MuyrJxmnjdExlaclub076/21/2025 2:43 PM EDT Jackie Crawley RNRespiration 2:43 PM Jackie Anguiano RN Ddlqzifgbxv589/21/2025 2:43 PM Jackie Anguiano RNConsciousness21 2:43 PM Jackie Anguiano RNOxygen Cwspeitqki054/21/2025 2:43 PM Jackie Anguiano RNModified Antoine Fikib0701/21/2025 2:43 PM Jackie Anguiano RN documented in this encounter Discharge Instructions * Attachments The following attachments cannot be sent through Care Everywhere. * Coronary Angiogram Care After ([place]) * Moderate Conscious Sedation Adult Care After ([place]) documented in this encounter Medications at Time of Discharge MedicationSigDispense QuantityRefillsLast FilledStart DateEnd Date amLODIPine (Norvasc) 2.5 mg tablet Take 1 tablet by mouth in the morning. calcium carbonate-vitamin D3 600 mg-5 mcg (200 unit) tablet 1 tablet.11/16/2021 carvedilol (Coreg) 3.125 mg tablet TAKE TABLET BY MOUTH DIRECTED TWICE DAILY06/06/2019 cholecalciferol (Vitamin D-3) 25 MCG (1000 UT) capsule Take 1 capsule every day by oral route. coenzyme Q-10 (Co Q-10) 10 mg capsule Take by mouth.06/06/2019 levothyroxine (Synthroid, Levoxyl) 75 mcg tablet Take 1 tablet by mouth in the morning.10/17/2023 lisinopril 10 mg tablet 10 mg in the morning and at bedtime.11/16/2021 lovastatin (Mevacor) 40 mg tablet Indications:Mixed hyperlipidemiaTake 1 tablet (40 mg) by mouth at bedtime. 90 tablet multivit-min/ferrous fumarate (MULTI VITAMIN ORAL) 1 (one) time each day at the same time. nystatin, bulk, 1 billion unit powder Indications:Skin rash1 Application twice a day. 1 each omega 9-ftx-oyq-fish oil 300 mg-100 mg- 150 mg-1,000 mg capsule Take 1,000 mg by mouth. oxyBUTYnin XL (Ditropan-XL) 5 mg 24 hr tablet Take 5 mg by mouth in the morning.01/01/2025 ascorbic acid (Vitamin C) 500 mg tablet Take 500 mg by mouth in the morning.06/25/2025 cod liver oiL capsule Take by mouth. docusate sodium (Colace) 100 mg capsule Take by mouth.documented as of this encounter H&P Notes * Pebbles Scott MD - 06/18/2025 7:59 AM EDT Patient presents for a scheduled OLIVER, CORS and RHC for evaluation of suspected severe AVS. Risks and benefits of the procedure have been discussed extensively and patient consents to the aforementioned procedure. H&P reviewed. The patient was examined and there are no changes to the H&P. Cosigned by Sanjay Delarosa MD at 06/18/2025 9:26 AM EDT Source Note - Sanjay Delarosa MD - 06/14/2025 11:30 AM EDT Images from the original note were not included. [place] [facility] - [facility] Subjective Humera Rowe is a 84 y.o. year old female patient being seen for Valve replacement surgery per [facility] Year[facility]. Patient complains of chest pain, SOB/MORRISSEY, [...] 04/10/2024 Negative Bilirubin, Urine 04/10/2024 Negative Specific [place], Urine 04/10/2024 1.004 (L) Ketones, Urine 04/10/2024 [...] Basic metabolic panel; Future - Case Request Key Entry Operator: Coronary angiography, Left heart cath, Right heart cath - CBC and differential; Future - Transesophageal echo (OLIVER); Future Shortness of breath - Basic metabolic panel; Future - Case Request Key Entry Operator: Coronary angiography, Left heart cath, Right heart cath - CBC and differential; Future Other chest pain - Basic metabolic panel; Future - Case Request Key Entry Operator: Coronary angiography, Left heart cath, Right heart [...] the potential risks with TAVR including stroke, ND, and . I also discussed the risk [...] bladder emptying Female stress incontinence Head injury Iaeger-Walker grade 2 rectocele History of left breast [...] day., Disp: 1 each, Rfl: 2 omega 0-aaa-jbj-fish oil 300 mg-100 mg- 150 mg-1,000 mg [...] tablet, Rfl: 3 documented in this encounter Nursing Notes * Jackie Crawley RN - 06/18/2025 2:43 PM EDT RN educated pt on d/c instructions. This included: site care, limited physical activity, resume normal diet, future appointments, medications, and moderate sedation instructions. RN educated pt on when to notify physician and when to go to the hospital. RN provided pt with arm sling and educated pt on importance of not using arm for 24 hours for radial sites. RN encouraged pt to voice any questions or concerns, and answered any questions or concerns if pt verbalized. Pt was wheeled off of unit with all of belongings. * Lauren Hollis RN - 06/18/2025 1:06 PM EDT Bedside swallow study completed and passed. * Jackie Crawley RN - 06/18/2025 9:49 AM EDT Report given to LUIZA Viramontes documented in this encounter Miscellaneous Notes * Pre-Sedation Documentation - Pebbles Scott MD - 06/18/2025 8:01 AM EDT Patient: Humera Rowe Choose an anesthesia record to view details Clinical information reviewed: Allergies Meds OB Status Physical Exam Airway Mallampati: II TM distance: >3 FB Neck ROM: full Cardiovascular Rhythm: regular Rate: normal (+) murmur Dental Pulmonary Neurological Abdominal Anesthesia Plan ASA 2 other (Conscious sedation) Anesthetic plan and risks discussed with patient. Use of blood products discussed with patient who consented to blood products. Plan discussed with attending. Additional Equipment Requests Cosigned by Sanjay Delarosa MD at 06/18/2025 9:26 AM EDT documented in this encounter Plan of Treatment DateTypeDepartmentCare Team (Latest Contact Info)Hiodeiuefgs43/03/2025 2:00 PM ESTOffice Visit [facility] [address] [place] [address] Sanjay Delarosa MD [address] [facility] [address] [facility] [place] [address] 07/05/2025 2:30 PM ESTFollow-Up [facility] [address] [place] [address] Brissa Potter MD [address] [place] [address] NameTypePriorityAssociated DiagnosesOrder ScheduleAmbulatory referral to Cardiac RehabOutpatient ReferralRoutine Nonrheumatic aortic valve stenosis Expected: 06/18/2025 (Approximate), Expires: 2025documented as of this encounter Procedures Procedure NamePriorityDate/TimeAssociated DiagnosisCommentsRIGHT HEART CATH Rahepqz6606/18/2025 12:50 PM EDT Nonrheumatic aortic valve stenosis Shortness of breath Other chest pain LEFT HEART ROMXRuvxktg51/21/2025 12:50 PM EDT Nonrheumatic aortic valve stenosis Shortness of breath Other chest pain CORONARY TORWONSBIOUNbobpjf94/21/2025 12:50 PM EDT Nonrheumatic aortic valve stenosis Shortness of breath Other chest pain %SVN6Auorfpq27/21/2025 12:38 PM EDT TRANSESOPHAGEAL ECHO (OLIVER) W/ LIMITED DOPPLER AND COLOR CLYTTqlbbxt73/21/2025 9:53 AM EDT Nonrheumatic aortic valve stenosis ECG 12-XDDFEtcrptv40/21/2025 8:54 AM EDT documented in this encounter Results * CORONARY ANGIOGRAPHY, LEFT HEART CATH, RIGHT HEART CATH (06/18/2025 12:50 PM EDT)Anatomical RegionLateralityModalityOtherSpecimen (Source)Anatomical Location / LateralityCollection Method / VolumeCollection TimeReceived Time Narrative 06/18/2025 12:57 PM EDT PROCEDURE PHYSICIAN: Sanjay Delarosa MD . Indications: Humera Rowe is a 84 y.o. female with severe symptomatic aortic valve stenosis who is undergoing worked up for aortic valve replacement. ??She was referred for cardiac catheterization. Assistants: Cardiovascular Fellow Dr Pebbles Scott. Procedure Performed: Bilateral selective coronary angiogram. Right heart catheterization. Access into the right internal jugular vein under ultrasound guidance. Access into the left radial artery under ultrasound guidance. Methods: ??Procedure was explained to the patient with risks and benefits; she signed informed consent. ??she was brought to the analytical lab analyst in a fasting state. The right neck area was prepped and draped in usual fashion. Micropuncture technique was used for access under ultrasound guidance into the right internal jugular vein. ??A 6-Liberian x 11 cm sheath was placed. ?? The left wrist area was prepped and draped in usual fashion. Micropuncture technique was used for access in the radial artery. ??A 5-Liberian x 11 cm sheath was placed. ??Verapamil was given through the sheath, and heparin was administered intravenously. ?? A 6-Liberian Mckenzie catheter was used for right heart catheterization and measurement of pressures and calculation of cardiac output using the estimated Oswald method. ??Mckenzie catheter was removed. Bilateral selective coronary angiography was then performed using 4-Liberian JL4 diagnostic catheter for engagement of the left coronary artery and 4-Liberian JR4 diagnostic catheter for engagement of the right coronary artery. Catheters were removed. Hemostasis was achieved by TR band in the radial artery manual compression in the internal jugular vein. ??she tolerated the procedure well and was transferred back to the cardiovascular recovery area. Hemodynamic Data: ?? RA: 8 RV: 40/12, 13 PA: 36/15 (24) PCWP: 19 CO: 3.98 CI: 2.37 O2 Sat: PA sat: 69%, AO sat: 100% AO: 100/37 (58) Coronary angiography: This is a right-dominant circulation. Left Main: This arises from the left coronary cusp. ??It bifurcates into left anterior descending and circumflex vessels. ??This has mild luminal irregularities but no obstructive lesions. Left anterior descending: ??This has mild luminal irregularities but no obstructive lesions. Circumflex: ?? This is a non-dominant vessel. ??This has mild luminal irregularities but no obstructive lesions. Right coronary artery: ?? This arises from the right coronary cusp. ??It is a dominant vessel. This has mild luminal irregularities but no obstructive lesions. Impression/Findings: Mild coronary artery disease. Mild to moderate elevation of left filling pressures. Mild elevation of right filling pressures. Mild pulmonary hypertension. Low normal cardiac output and cardiac index. Controlled systemic hypertension. 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 Plan: Medical therapy for coronary artery disease. Aspirin 81 mg daily for life. Statin therapy for life. The patient will proceed with completing the workup for aortic valve replacement. Sanjay Delarosa MD Study Details Nonrheumatic aortic valve stenosis [I35.0]Shortness of breath [R06.02]Other chest pain [R07.89] Authorizing ProviderResult TypeResult StatusGeorge Isaura [facility] CARDIAC CATH PROCEDURESFinal Result * (ABNORMAL) %HbO2 (06/18/2025 12:38 PM EDT)ComponentValueRef RangeTest Method Analysis TimePerformed AtPathologist UrykpsnkhN3Mb%68.5(L)90.0 - 95.0 % 06/18/2025 12:38 PM EDTS[facility] (JULIANNE)Specimen (Source)Anatomical Location / LateralityCollection Method / VolumeCollection TimeReceived Time BloodVenous blood specimen / Sruvzjw1706/18/2025 12:38 PM EDT1 12:38 PM EDT Narrative Authorizing ProviderResult TypeResult StatusGeorge Isaura [facility] POINT OF CARE TEST DOCKED DEVICE UNSOLICITED RESULTSFinal ResultPerforming Organization AddressCity/State/ZIP CodePhone Number [facility] ([facility]AKER) [address] [place] [address] * TRANSESOPHAGEAL ECHO (OLIVER) W/ LIMITED DOPPLER AND COLOR FLOW (06/18/2025 9:53 AM EDT)Anatomical RegionLateralityModalityOtherSpecimen (Source)Anatomical Location / LateralityCollection Method / VolumeCollection TimeReceived Time 06/18/2025 8:45 AM EDT Narrative 06/18/2025 7:31 PM EDT 1 [facility] Heart Station [address] [place] [address] (fax) Transesophageal Echocardiogram-[facility] Name: HUMERA ROWE Study Date: 06/18/2025 08:45 AM B/P: 142 mmHg/57 mmHg HR: Date of : 1940 Location: [facility] Height: 63 in. Age: 84 year(s) Patient Room: [facility] Weight: 160 lb. Gender: Female Patient Status: OutPt BSA: 1.76 m2 Indication: Aortic Valve Stenosis Examination: OLIVER/Limited Doppler/CFI Image Quality: Good Patient Consent: Informed, written consent was obtained for the procedure Exam Location: A OLIVER was performed in the Key Entry Operator without complications Anesthesia Pharyngeal anesthesia with viscous [...] reviewed the examination Procedure Staff Reading Group: [facility] Chief Science Officer: Sunita Davenport RDCS ??Ordering Physician: Sanjay Delarosa MD Procedure Note Sanjay Delarosa MD - 06/18/2025 1 [facility] [address] [place] [address] [phone] (fax) Transesophageal Echocardiogram-[facility] Name: HUMERA ROWE Study Date: 06/18/2025 08:45 AM B/P: 142 mmHg/57 mmHg HR: Date of : 1940 Location: [facility] Height: 63 in. Age: 84 year(s) Patient Room: [facility] Weight: 160 lb. Gender: Female Patient Status: OutPt BSA: 1.76 m2 Indication: Aortic Valve Stenosis Examination: OLIVER/Limited Doppler/CFI Image Quality: Good Patient Consent: Informed, written consent was obtained for the procedure Exam Location: A OLIVER was performed in the Key Entry Operator without complications Anesthesia Pharyngeal anesthesia with viscous [...] reviewed the examination Procedure Staff Reading Group: [facility] Chief Science Officer: Sunita Davenport RDCS Ordering Physician: Sanjay Delarosa MD Authorizing ProviderResult TypeResult StatusGeorge Isaura [facility] ECHO PROCEDURESFinal Result * Electrocardiogram, 12-lead (06/18/2025 8:54 AM EDT)ComponentValueRef RangeTest MethodAnalysis TimePerformed AtPathologist SignatureVentricular Rsrl18PDRHY MUSEAtrial Yqhh11TQEBW MUSEPR Yhuiouzj927vrBB MUSEQRS IOIPLPSX860zqVH MUSEQT Qpnmupjl016xrMP MUSEQTC CALCULATION(BAZETT)443msGE MUSEP Dlch73tdeievsLN MUSE W-Zhiz-7drndpqeGI MUSET Wave Rdbn95anevjwcAW MUSESpecimen (Source)Anatomical Location / LateralityCollection Method / VolumeCollection TimeReceived Time 06/18/2025 8:27 AM EDT1 1:28 PM EDT Impressions GE MUSE - 06/18/2025 1:28 PM EDT Sinus bradycardia Right bundle branch block Abnormal ECG When compared with ECG of 27-DEC-2023 16:57, No significant change was found Confirmed by [place] NGUYEN, MEHDI Riddle (57) on 06/18/2025 1:28:26 PM Narrative Procedure Note Mehdi Nguyen MD - 06/18/2025 IMPRESSION: Sinus bradycardia Right bundle branch block Abnormal ECG When compared with ECG of 27-DEC-2023 16:57, No significant change was found Confirmed by [place] NGUYEN, MEHDI Riddle (57) on 06/18/2025 1:28:26 PM Authorizing ProviderResult TypeResult StatusGeorge Isaura KLINEECG ORDERABLES Final ResultPerforming OrganizationAddressCity/State/ZIP CodePhone Number GE MUSE documented in this encounter Visit Diagnoses Diagnosis Nonrheumatic aortic valve stenosis Shortness of breath Other chest pain Nonrheumatic aortic valve stenosis Shortness of breath Other chest pain documented in this encounter Admitting Diagnoses Diagnosis Nonrheumatic aortic valve stenosis Shortness of breath Other chest pain documented in this encounter Administered Medications Medication OrderMAR ActionAction DateDoseRateSite aspirin tablet 325 mg 325 mg, oral, Once, On Tue06/18/25 at 0815, For 1 dose, Preprocedure Given06/18/2025 8:15 AM HSS515 mg fentaNYL (Sublimaze) injection As needed, Starting on Tue06/18/25 at 0928, Intraprocedure Given06/18/2025 9:35 AM EDT12.5 hzkXkysi20/21/2025 9:28 AM EDT25 mcg lidocaine (Xylocaine) 2 % mouth solution Mouth/Throat, As needed, Procedure Medication, Starting on Tue06/18/25 at 0920, Intraprocedure Given06/18/2025 9:20 AM EDT15 mL midazolam (Versed) injection As needed, Starting on Tue06/18/25 at 0928, Intraprocedure Given06/18/2025 9:35 AM EDT1 mpMhaab5106/18/2025 9:28 AM EDT1 mg sodium chloride 0.9 % infusion Continuous PRN, Starting on Tue06/18/25 at 0812, Intraprocedure New Bag06/18/2025 8:12 AM EDT50 mL/hr50 mL/hrdocumented in this encounter Active and Recently Administered Medications Times are shown in EDT.Medication Order/ aspirin tablet 325 mg (COMPLETED) 325 mg, oral, Once, On Tue06/18/25 at 0815, For 1 dose, Preprocedure * 0815 (Given - Provider: Jackie Crawley RN) Medication Order/ fentaNYL (Sublimaze) injection (COMPLETED) As needed, Starting on Tue06/18/25 at 0928, Intraprocedure * 0928 (Given - Provider: Jackie Crawley RN) * 0935 (Given - Provider: Jackie Crawley RN) fentaNYL (Sublimaze) injection (CANCELED) As needed, Starting on Tue06/18/25 at 1226, Intraprocedure * 1226 (Given - Provider: Duke Armas RN) * 1241 (Given - Provider: Duke Armas RN) heparin (porcine) injection (CANCELED) As needed, Starting on Tue06/18/25 at 1241, Intraprocedure * 1241 (Given - Provider: Duke Armas RN) heparin irrigation 2 units/mL in NS (CANCELED) As needed, Starting on Tue06/18/25 at 1250, Intraprocedure * 1250 (Given - Provider: Sanjay Delarosa MD) iodixanol (VISIPaque) 320 mg iodine/mL injection (CANCELED) As needed, Starting on Tue06/18/25 at 1249, Intraprocedure * 1249 (Given - Provider: Sanjay Delarosa MD) lidocaine (PF) (Xylocaine) 10 mg/mL (1 %) injection (CANCELED) As needed, Starting on Tue06/18/25 at 1250, Intraprocedure * 1250 (Given - Provider: Sanjay Delarosa MD) lidocaine (Xylocaine) 2 % mouth solution (COMPLETED) Mouth/Throat, As needed, Procedure Medication, Starting on Tue06/18/25 at 0920, Intraprocedure * 0920 (Given - Provider: Jackie Carwley RN) midazolam (Versed) injection (COMPLETED) As needed, Starting on Tue06/18/25 at 0928, Intraprocedure * 0928 (Given - Provider: Jackie Crawley RN) * 0935 (Given - Provider: Jackie Crawley RN) midazolam (Versed) injection (CANCELED) As needed, Starting on Tue06/18/25 at 1242, Intraprocedure * 1242 (Given - Provider: Duke Armas RN) sodium chloride 0.9 % infusion (COMPLETED) Continuous PRN, Starting on Tue06/18/25 at 0812, Intraprocedure * 0812 (New Bag - Provider: Jackie Crawley RN) verapamil (Isoptin) injection (CANCELED) As needed, Starting on Tue06/18/25 at 1240, Intraprocedure * 1240 (Given - Provider: Sanjay Delarosa MD - Comment: lt radial artery) documented in this encounter Care Teams Team MemberRelationshipSpecialtyStart DateEnd Date Korin-Tari Morgan MD [address] [place] [address] PCP - General03/28/23 Daniel Ye, WOOL HAT FINISHER [address] [place] [address] Nurse PractitionerUrology05/05/23documented as of this encounter
--- OUTSIDE RECORDS SUMMARY | 2025-06-18 10:30 | XMS_ITS | Encounter Summary ---
Author Organization [facility] Address [address] [place] [address] Care Team Providers Care Finisher Operator Name Role Phone Tari Bello MD Primary Care Provider + [phone] Daniel Ye CNP Unavailable [phone] Reason for Visit * Auth/Cert (Routine)SpecialtyDiagnoses / ProceduresReferred By ContactReferred To Contact Diagnoses Nonrheumatic aortic valve stenosis Shortness of breath Other chest pain Nonrheumatic aortic valve stenosis [I35.0] Shortness of breath [R06.02] Other chest pain [R07.89] Procedures [place] OFFICE/OUTPT VISIT,PROCEDURE ONLY [place] OFFICE/OUTPT VISIT,PROCEDURE ONLY Coronary angiography Left heart cath Right heart cath Sanjay Delarosa MD [address] [facility] [address] [facility] [place] [address] Phone: tel: fax: [facility] Heart [facility] V[facility] Center Vascular Lab [address] [place] [address] Phone: tel: fax: Referral IDStatusReasonStart DateExpiration DateVisits RequestedVisits [id number] Encounter Details DateTypeDepartmentCare Team (Latest Contact Info)Sbxyyzkwqan75/21/2025 10:30 AM EDT - 06/18/2025 11:30 AM EDTSurgery [facility] Vascular Lab [address] [place] [phone] Sanjay Delarosa MD [address] [facility] [address] [facility] [place] [address] Coronary angiography Social History Tobacco UseTypesPacks/DayYears UsedDateSmoking Tobacco: NeverPassive Smoke Exposure: NeverSmokeless Tobacco: NeverAlcohol UseStandard Drinks/WeekComments Not Currently0 (1 standard drink = 0.6 oz pure alcohol)occasionally has some wine 2x monthHumiliation, Afraid, Rape, and Kick questionnaireAnswerDate RecordedWithin the last year, have you been afraid of your partner or ex-partner?No02/29/2024Emotionally AbusedNot on file02/29/2024hysically Abused Not on file02/29/2024Sexually AbusedNot on file02/29/2024HQ-2AnswerDate RecordedPatient Health Questionnaire-2 Szkwu430CommentsNoSex and Gender InformationValueDate RecordedSex Assigned at ObyrmOsglzw71/15/2024 6:35 AM ESTLegal PimHkqlip76/29/2022 9:32 PM EDTGender XcjxqshgQyhbmk71/15/2024 6:35 AM ESTSexual OrientationHeterosexual or Hquonkka79/15/2024 6:35 AM ESTdocumented as of this encounter Last Filed Vital Signs Vital SignReadingTime TakenCommentsBlood Pdmpnurf346/5010 11:30 AM EDT Qvmpe619606/18/2025 11:30 AM EDTTemperature--Respiratory Uami9710 11:30 AM EDTOxygen Fswsarjmnk444%06/18/2025 11:30 AM EDTInhaled Oxygen Concentration-- Ijkaum72.9 kg (143 lb)06/18/2025 8:10 AM OXRCelgkh065 cm (5' 3 )06/18/2025 8:10 AM EDTBody Mass Index25.331 8:10 AM EDTdocumented in this encounter Functional Status * QuestionAnswerDate of XmhvqrqhqgPprdawOD372/501 11:30 AM Lauren Hernandez RNPulse4506/18/2025 11:30 AM Lauren Hernandez RN * Pain Assessment TimerQuestionAnswerDate of AssessmentAuthorRestart Pain Assessment FlazlDus94/21/2025 11:30 AM Lauren Hernandez RN * Sepsis Model ScoresQuestionAnswerDate of AssessmentAuthorEarly Detection of Sepsis Score3.410 11:15 AM Hortensia Denton * Pain AssessmentQuestionAnswerDate of AssessmentAuthorPain AssessmentNo/denies pain06/18/2025 11:30 AM Lauren Hernandez RN * Patient PositionAnswerDate of RqdclozqfiDmbttzXgcgcki93/17/2025 11:37 AM EDT Brittany Araujo MA * QuestionAnswerDate of AssessmentAuthorPulse rate from Plethysmogram (bpm)46 06/18/2025 11:30 AM Lauren Hernandez RN * Vital SignsQuestionAnswerDate of ClqdvwptrgSijwfqEB581/501 11:30 AM Lauren Hernandez RNPulse4506/18/2025 11:30 AM Lauren Hernandez RNResp15 06/18/2025 11:30 AM Lauren Hernandez RNSpO21001 11:30 AM Lauren Hernandez RNMAP (mmHg)7606/18/2025 11:30 AM Lauren Hernandez RN * Peripheral VascularQuestionAnswerDate of AssessmentAuthorPulsesLeft pedal;Right pedal;Left posterior tibial;Right posterior cidtic5406/18/2025 7:41 AM Jackie Anguiano RNEdemaOther (Comment)06/18/2025 8:11 AM Jackie Anguiano RN * RLE Neurovascular AssessmentQuestionAnswerDate of AssessmentAuthorRight Posterior Tibial Pulse+110 8:11 AM Jackie Anguiano RNRight Pedal Pulse+210 8:11 AM Jackie Anguiano RN * LLE Neurovascular AssessmentQuestionAnswerDate of AssessmentAuthorLeft Posterior Tibial Pulse+110 8:11 AM Jackie Anguiano RNLeft Pedal Pulse+ 8:11 AM Jackie Anguiano RN * BP LocationAnswerDate of AssessmentAuthorRight arm06/14/2025 11:37 AM EDT Brittany Araujo MA * RespiratoryQuestionAnswerDate of AssessmentAuthorBilateral Breath Sounds Clear;Trzeyknbhs69/21/2025 7:41 AM Jackie Anguiano RNRespiratory Effort Jzugtgcnr82/21/2025 7:41 AM Jackie Anguiano RNRespiratory Depth/Rhythm Oatrdnn5306/18/2025 7:41 AM Jackie Anguiano RNBreath SoundsBilateral breath wnmepb6706/18/2025 7:41 AM Jackie Anguiano RN * NeurologicalQuestionAnswerDate of AssessmentAuthorLevel of ConsciousnessAlert 06/18/2025 11:30 AM Lauren Hernandez RNOrientation LevelOriented X4 06/18/2025 11:30 AM Lauren Hernandez RNCognitionAppropriate judgement 06/18/2025 11:30 AM Lauren Hernandez RNSpeechClear1 11:30 AM EDT Lauren Hollis RN * Pain AssessmentQuestionAnswerDate of AssessmentAuthorPain AssessmentNo/denies pain06/18/2025 11:30 AM Lauren Hernandez RN * Kidder Suicide Severity Rating ScaleQuestionAnswerDate of AssessmentAuthor1. Have [...] Jackie Crawley RN * Patient PositionAnswerDate of QlppdouqlqSibubjStabcjj48/17/2025 11:37 AM EDT Brittany Araujo MA * Modified AldreteQuestionAnswerDate of AagholfoacUjyterUjbfgsvy914/21/2025 9:46 AM Jackie Anguiano RNRespiration 9:46 AM Jackie Anguiano RN Ykddvhmfeyt365/21/2025 9:46 AM Jackie Anguiano RNConsciousness 9:46 AM Jackie Anguiano RNOxygen Akpcxzmtxb034/21/2025 9:46 AM Jackie Anguiano RNModified Antoine Yhzsg1652 9:46 AM Jackie Anguiano RN documented as of this encounter Mental Status * Cai Agitation Sedation ScaleQuestionAnswerEntry DateAuthorRichmond Agitation Sedation Scale (RASS) 9:46 AM Jackie Anguiano RN * Modified AldreteQuestionAnswerEntry QqpoOolypuVecllugm056/21/2025 9:46 AM EDT Jackie Crawley RNRespiration 9:46 AM Jackie Anguiano RN Pcrdfiajhor247/21/2025 9:46 AM Jackie Anguiano RNConsciousness 9:46 AM Jackie Anguiano RNOxygen Nmgevkbcmu108/21/2025 9:46 AM Jackie Anguiano RNModified Antoine Zzkjz6675 9:46 AM Jackie Anguiano RN documented in this encounter Discharge Instructions * Attachments The following attachments cannot be sent through Care Everywhere. * Coronary Angiogram Care After (Tanzanian) * Moderate Conscious Sedation Adult Care After (Tanzanian) documented in this encounter Medications at Time [...] Application twice a day. 1 each omega 5-shn-ldz-fish oil 300 mg-100 mg- 150 mg-1,000 mg [...] from the original note were not included. [place] [facility] Subjective Humera Rowe is a 84 y.o. year old female patient being seen for Valve replacement surgery per [facility] Yearly. Patient complains of chest [...] 04/10/2024 Negative Bilirubin, Urine 04/10/2024 Negative Specific [place], Urine 04/10/2024 1.004 (L) Ketones, Urine 04/10/2024 [...] Basic metabolic panel; Future - Case Request Water Pollution Specialist: Coronary angiography, Left heart cath, Right heart cath - CBC and differential; Future - Transesophageal echo (OLIVER); Future Shortness of breath - Basic metabolic panel; Future - Case Request Water Pollution Specialist: Coronary angiography, Left heart cath, Right heart cath - CBC and differential; Future Other chest pain - Basic metabolic panel; Future - Case Request Water Pollution Specialist: Coronary angiography, Left heart cath, Right heart [...] the potential risks with TAVR including stroke, [place], and . I also discussed the risk [...] bladder emptying Female stress incontinence Head injury [place]-Walker grade 2 rectocele History of left breast [...] day., Disp: 1 each, Rfl: 2 omega 9-eoo-yhc-fish oil 300 mg-100 mg- 150 mg-1,000 mg [...] Plan of Treatment DateTypeDepartmentCare Team (Latest Contact Info)Lhmpodapmhd82/03/2025 2:00 PM ESTOffice Visit [facility] [address] [place] [address] Sanjay Delarosa MD [address] [facility] [place] [phone] 07/05/2025 2:30 PM ESTFollow-Up [facility] [address] [place] [address] Brissa Potter MD [address] [place] [address] NameTypePriorityAssociated DiagnosesOrder ScheduleAmbulatory referral to Cardiac RehabOutpatient ReferralRoutine Nonrheumatic aortic valve stenosis Expected: 06/18/2025 (Approximate), Expires: 2025documented as of this encounter Procedures Procedure NamePriorityDate/TimeAssociated DiagnosisCommentsRIGHT HEART CATH Mcsxtww8406/18/2025 12:50 PM EDT Nonrheumatic aortic valve stenosis Shortness of breath Other chest pain LEFT HEART DLDCMzcnmrq98/21/2025 12:50 PM EDT Nonrheumatic aortic valve stenosis Shortness of breath Other chest pain CORONARY OAEQXIXWFXIUewiost25/21/2025 12:50 PM EDT Nonrheumatic aortic valve stenosis Shortness of breath Other chest pain %BUB5Mkarrav38/21/2025 12:38 PM EDT TRANSESOPHAGEAL ECHO (OLIVER) W/ LIMITED DOPPLER AND COLOR VUQZCfkzwmf96/21/2025 9:53 AM EDT Nonrheumatic aortic valve stenosis ECG 12-IZYASlmlnkp24/21/2025 8:54 AM EDT documented in this encounter [...] informed consent. ??she was brought to the medical laboratory assistant in a fasting state. The right neck area was prepped and draped in usual fashion. Micropuncture technique was used for access under ultrasound guidance into the right internal jugular vein. ??A 6-Swedish x 11 cm sheath was placed. ?? The left wrist area was prepped and draped in usual fashion. Micropuncture technique was used for access in the radial artery. ??A 5-Swedish x 11 cm sheath was placed. ??Verapamil was given through the sheath, and heparin was administered intravenously. ?? A 6-Swedish Mckenzie catheter was used for right heart catheterization and measurement of pressures and calculation of cardiac output using the estimated Oswald method. ??Mckenzie catheter was removed. Bilateral selective coronary angiography was then performed using 4-Swedish JL4 diagnostic catheter for engagement of the left coronary artery and 4-Swedish JR4 diagnostic catheter for engagement of the [...] [R06.02]Other chest pain [R07.89] Authorizing ProviderResult TypeResult StatusSanjay Delarosa [facility] CARDIAC CATH PROCEDURESFinal Result * (ABNORMAL) %HbO2 (06/18/2025 12:38 PM EDT)ComponentValueRef RangeTest Method Analysis TimePerformed AtPathologist XfynkroroS6Kl%68.5(L)90.0 - 95.0 % 06/18/2025 12:38 PM [facility]TG[facility] ([place])Specimen (Source)Anatomical Location / LateralityCollection Method / VolumeCollection TimeReceived Time BloodVenous blood specimen / Quhttsc2306/18/2025 12:38 PM EDT1 12:38 PM EDT Narrative Authorizing ProviderResult TypeResult StatusSanjay STINSON POINT OF CARE TEST DOCKED DEVICE UNSOLICITED RESULTSFinal ResultPerforming Organization AddressCity/State/ZIP CodePhone Number [facility] ([place]) [address] [place] [address] * TRANSESOPHAGEAL ECHO (OLIVER) W/ LIMITED DOPPLER AND COLOR FLOW (06/18/2025 9:53 AM EDT)Anatomical RegionLateralityModalityOtherSpecimen (Source)Anatomical Location / LateralityCollection Method / VolumeCollection TimeReceived Time 06/18/2025 8:45 AM EDT Narrative 06/18/2025 7:31 PM EDT 1 [facility] Heart Station [address] [place] [address] [phone] (fax) Transesophageal Echocardiogram-[facility] Name: HUMERA ROWE Study Date: 06/18/2025 08:45 AM B/P: 142 mmHg/57 mmHg HR: Date of : 1940 Location: [facility] Height: 63 in. Age: 84 year(s) Patient Room: [facility] VASCULAR POOL Weight: 160 lb. Gender: Female Patient Status: OutPt BSA: 1.76 m2 Indication: Aortic Valve Stenosis Examination: OLIVER/Limited Doppler/CFI Image Quality: Good Patient Consent: Informed, written consent was obtained for the procedure Exam Location: A OLIVER was performed in the Water Pollution Specialist without complications Anesthesia Pharyngeal anesthesia with viscous [...] reviewed the examination Procedure Staff Reading Group: [facility] Condemnation Engineer: Sunita Davenport RDCS ??Ordering Physician: Sanjay Delarosa MD Procedure Note Sanjay Delarosa MD - 06/18/2025 1 [facility] Heart Station [address] [place] [address] [phone] (fax) Transesophageal Echocardiogram-[facility] Name: HUMERA ROWE Study Date: 06/18/2025 08:45 AM B/P: 142 mmHg/57 mmHg HR: Date of : 1940 Location: [facility] Height: 63 in. Age: 84 year(s) Patient Room: [facility] VASCULAR POOL Weight: 160 lb. Gender: Female Patient Status: OutPt BSA: 1.76 m2 Indication: Aortic Valve Stenosis Examination: OLIVER/Limited Doppler/CFI Image Quality: Good Patient Consent: Informed, written consent was obtained for the procedure Exam Location: A OLIVER was performed in the Water Pollution Specialist without complications Anesthesia Pharyngeal anesthesia with viscous [...] reviewed the examination Procedure Staff Reading Group: [facility] Condemnation Engineer: Sunita Davenport RDCS Ordering Physician: Sanjay Delarosa MD Authorizing ProviderResult TypeResult StatusSanjay Delarosa [facility] ECHO PROCEDURESFinal Result * Electrocardiogram, 12-lead (06/18/2025 8:54 AM EDT)ComponentValueRef RangeTest MethodAnalysis TimePerformed AtPathologist SignatureVentricular Bahy03DEWVG MUSEAtrial Cdau90CCEQJ MUSEPR Qakrepht691hgGM MUSEQRS MYCNSZWL350ovPX MUSEQT Hbzoctxg483zeQJ MUSEQTC CALCULATION(ADRI)443msGE MUSEP Ecrd78lkpqmeeDI MUSE U-Jnau-2ndkgwkxQM MUSET Wave Hdma44llvsrghDF MUSESpecimen (Source)Anatomical Location / LateralityCollection Method / [...] significant change was found Confirmed by [place] NGUYEN SAMER J. ([id number]) on 06/18/2025 1:28:26 PM Authorizing ProviderResult TypeResult Katt Delarosa MDECG ORDERABLES Final ResultPerforming OrganizationAddressCity/State/ZIP CodePhone Number GE [...] For 1 dose, Preprocedure Given06/18/2025 8:15 AM ZYH180 mg fentaNYL (Sublimaze) injection As needed, Starting on Tue06/18/25 at 0928, Intraprocedure Given06/18/2025 9:35 AM EDT12.5 dvkJmnkz22/21/2025 9:28 AM EDT25 mcg fentaNYL (Sublimaze) injection As needed, Starting on Tue06/18/25 at 1226, Intraprocedure Given06/18/2025 12:41 PM EDT12.5 ofrYqzbj92/21/2025 12:26 PM EDT12.5 mcg heparin (porcine) injection As needed, Starting on Tue06/18/25 at 1241, Intraprocedure Given06/18/2025 12:41 PM EDT3,000 Units heparin irrigation 2 units/mL in NS As needed, Starting on Tue06/18/25 at 1250, Intraprocedure Given06/18/2025 12:50 PM EDT2,000 mL iodixanol (VISIPaque) 320 mg iodine/mL injection As needed, Starting on Tue06/18/25 at 1249, Intraprocedure Given06/18/2025 12:49 PM EDT15 mL lidocaine (PF) (Xylocaine) 10 mg/mL (1 %) injection As needed, Starting on Tue06/18/25 at 1250, Intraprocedure Given06/18/2025 12:50 PM EDT10 mL lidocaine (Xylocaine) 2 % mouth solution Mouth/Throat, As needed, Procedure Medication, Starting on Tue06/18/25 at 0920, Intraprocedure Given06/18/2025 9:20 AM EDT15 mL midazolam (Versed) injection As needed, Starting on Tue06/18/25 at 0928, Intraprocedure Given06/18/2025 9:35 AM EDT1 saUuqks7606/18/2025 9:28 AM EDT1 mg midazolam (Versed) injection As needed, Starting on Tue06/18/25 at 1242, Intraprocedure Given06/18/2025 12:42 PM EDT0.5 mg sodium chloride 0.9 % infusion Continuous PRN, Starting on Tue06/18/25 at 0812, Intraprocedure New Bag06/18/2025 8:12 AM EDT50 mL/hr50 mL/hr verapamil (Isoptin) injection As needed, Starting on Tue06/18/25 at 1240, Intraprocedure Given06/18/2025 12:40 PM EDT1.5 mgdocumented in this encounter Active and Recently Administered [...] Intraprocedure * 0920 (Given - Provider: Jackie Crawley, LUIZA) midazolam (Versed) injection (COMPLETED) As needed, Starting on Tue06/18/25 at 0928, Intraprocedure * 0928 (Given - Provider: Jackie Crawley, RN) * 0935 (Given - Provider: Jackie Crawley RN) midazolam (Versed) injection (CANCELED) As needed, Starting on Tue06/18/25 at 1242, Intraprocedure * 1242 (Given - Provider: Duke Armas, LUIZA) sodium chloride 0.9 % infusion (COMPLETED) Continuous [...] MD [address] [place] [address] PCP - General03/28/23 Daniel Ye CNP [address] [place] [address] Nurse PractitionerUrology05/05/23documented as of this encounter
--- OUTSIDE RECORDS SUMMARY | 2025-06-25 14:45 | XMS_ITS | Encounter Summary ---
Author Organization [facility] Address [address] [place] [address] Care Team Providers Care Automation Software Engineer Name Role Phone Tari Bello MD Primary Care Provider + [phone] Daniel Ye [employer] Unavailable [phone] Reason for Visit * ReasonCommentspain s/p cathC/o pain in L wrist s/p heart cath with Dr. Delarosa on 06/18/2025. Wrist is red and tender to touch, although she says the pain isn't as bad today as it was yesterday. It's a little swollen compared to R right. Encounter Details DateTypeDepartmentCare Team (Latest Contact Info)Alfipajuyjd75/28/2025 2:45 PM EDTOffice Visit [facility] [address] [place] [address] Cy Wiggins MD [address] [place] [address] Infection (Primary Dx); Wrist pain, acute, left Social History Tobacco UseTypesPacks/DayYears UsedDateSmoking Tobacco: NeverPassive Smoke Exposure: NeverSmokeless Tobacco: NeverAlcohol UseStandard Drinks/WeekComments Not Currently0 (1 standard drink = 0.6 oz pure alcohol)occasionally has some wine 2x monthHumiliation, Afraid, Rape, and Kick questionnaireAnswerDate RecordedWithin the last year, have you been afraid of your partner or ex-partner?No02/29/2024Emotionally AbusedNot on file02/29/2024hysically Abused Not on file02/29/2024Sexually AbusedNot on file02/29/2024HQ-2AnswerDate RecordedPatient Health Questionnaire-2 [id number] and Gender InformationValueDate RecordedSex Assigned at ScnazIxhozs80/15/2024 6:35 AM ESTLegal JerVogonw71/29/2022 9:32 PM EDTGender OfvutgtbNoynwg51/15/2024 6:35 AM ESTSexual OrientationHeterosexual or Jfqsyjzf67/15/2024 6:35 AM ESTdocumented as of this encounter Last Filed Vital Signs Vital SignReadingTime TakenCommentsBlood Ouwxylub133/ 2:43 PM EDT Nehah641006/25/2025 2:43 PM EDTTemperature--Respiratory Rate--Oxygen Ntwtzxkrmf38% 06/25/2025 2:43 PM EDTInhaled Oxygen Concentration--Znslel07.9 kg (143 lb) 06/25/2025 2:43 PM LMRGhczzs122 cm (5' 3 )06/25/2025 2:43 PM EDTBody Mass Index 25.331 2:43 PM EDTdocumented in this encounter Functional Status * BPAnswerDate of EfjmsbpbveUhtbgb616/ 2:43 PM Bella Purdy MA * PulseAnswerDate of HpcpnhazpqPrdohv1760/28/2025 2:43 PM Bella Purdy MA * Patient PositionAnswerDate of XzascpbkbqTizjmdVfxdfgb22/28/2025 2:43 PM EDT Bella Saxena MA * BPAnswerDate of TzskjeqicjUobyei049 2:43 PM Bella Purdy MA * PulseAnswerDate of LpgreidwsaNduqqt8553/28/2025 2:43 PM Bella Purdy MA * EaL5QmnnotQyva of NfuigtcnjsCrlllb3643/ 2:43 PM EDTBella Saxena MA * BP LocationAnswerDate of AssessmentAuthorRight arm06/25/2025 2:43 PM EDT Bella Saxena MA * Patient PositionAnswerDate of PbccmjidrdSrvzwjZypgyet61/28/2025 2:43 PM EDT Bella Saxena MA documented as of this encounter Progress Notes * Cy Wiggins MD - 06/25/2025 2:45 PM EDT Images from the original note were not included. [place] [facility] - [facility] Subjective Humera Avalos is a 84 y.o. year old female patient being seen for Valve replacement surgery. She recently underwent a coronary angiography via radial approach on 06/18/[address] BOWLES. Today she comes to the clinic reporting pain and discomfort and swelling. Problem List[1] Family History[2] Social History[3] Prior HPI She is has a prior history of [...] for bleeding problem. Objective Visit Vitals BP 160/62 (BP Location: Right arm, Patient Position: Sitting) Pulse 54 Ht 1.6 m (5' 3 ) Wt 64.9 kg (143 lb) SpO2 99% BMI 25.33 kg/m?? OB Status Hysterectomy Smoking Status Never BSA 1.7 m?? Physical Exam Constitutional: Appearance: She is [...] soft. Tenderness: There is no abdominal tenderness. Upper extremity: Wrist area reveals tenderness at the entry point and increased warmth in the left upper extremity compared to the right. No significant discoloration noted there is comparatively mildly increased swelling Radial pulses are 2+ on palpation and well heard with Doppler Ulnar pulses is 1+ and well heard with Doppler No evidence of compartment syndrome seen Skin: General: Skin is warm and dry. Neurological: General: No focal deficit present. Mental Status: She is alert and oriented to person, place, and time. Allergies Allergies[4] Medications Current Medications[5] Recent Labs Admission on 06/18/2025, Discharged on 06/18/2025 Component Date Value Ventricular Rate 06/18/2025 48 Atrial Rate 06/18/2025 48 UT Interval 06/18/2025 140 QRS DURATION 06/18/2025 146 QT Interval 06/18/2025 496 QTC CALCULATION(BAZETT) 06/18/2025 443 P [place] 06/18/2025 74 R-[place] 06/18/2025 -2 T Wave [place] 06/18/2025 24 O2Hb% 06/18/2025 68.5 (L) Blood testing 12/06/2024: Hemoglobin 12.4, platelets 168, [...] Right bundle branch block Abnormal ECG Assessment/Plan - Pain at the left radial wrist at the site of arterial entry. There is no evidence of compartment syndrome and based on the exam and on Doppler there is good flow in the radial as well as ulnar artery. Given the swelling I discussed with Dr. BOWLES. (spot machine operator). Will order CBC and ESR and he will review those results and decide on whether the patient can benefit from antibiotic. I have advised the patient to keep an eye on her wrist and to come to the ED if there is discoloration. Patient is advised to follow-up with Dr. BOWLES in 1 week's time Cy Wiggins MD [1] Patient Active Problem List Diagnosis [...] bladder emptying Female stress incontinence Head injury [place]-Walker grade 2 rectocele History of left breast cancer Hyperthyroidism Neuropathy Obesity Osteopenia, senile Primary insomnia Renal cyst Stage 3b chronic kidney disease (CMS/HCC) Urinary retention Uses brace Shortness of breath Other chest pain Abdominal pain of unknown cause Acute cystitis with hematuria Bacteriuria Bladder outlet obstruction Malignant neoplasm of upper-outer quadrant of left female breast (CMS/HCC) Other acute postprocedural pain Rash and nonspecific skin eruption Status post left mastectomy Urinary catheter complication [2] No family history on file. [3] [...] mouth in the morning., Disp: , Rfl: calcium carbonate-vitamin D3 600 mg-5 mcg (200 unit) tablet, 1 tablet., Disp: , Rfl: carvedilol (Coreg) 3.125 mg tablet, TAKE TABLET BY MOUTH DIRECTED TWICE DAILY, Disp: , Rfl: cholecalciferol (Vitamin D-3) 25 MCG (1000 UT) capsule, Take 1 capsule every day by oral route., Disp: , Rfl: coenzyme Q-10 (Co Q-10) 10 mg capsule, Take by mouth., Disp: , Rfl: levothyroxine (Synthroid, Levoxyl) 75 mcg tablet, Take 1 tablet by mouth in the morning. (Patient taking differently: Take 88 mcg by mouth in the morning.), Disp: , Rfl: lisinopril 10 mg tablet, 10 mg in the morning and at bedtime., Disp: , Rfl: lovastatin (Mevacor) 40 mg tablet, Take 1 tablet (40 mg) by mouth at bedtime., Disp: 90 tablet, Rfl: 3 multivit-min/ferrous fumarate (MULTI VITAMIN ORAL), 1 (one) time each day at the same time., Disp: , Rfl: omega 4-nek-npf-fish oil 300 mg-100 mg- 150 mg-1,000 mg capsule, Take 1,000 mg by mouth., Disp: , Rfl: oxyBUTYnin XL (Ditropan-XL) 5 mg 24 hr tablet, Take 5 mg by mouth in the morning., Disp: , Rfl: cephalexin (Keflex) 500 mg capsule, Take 1 capsule (500 mg) by mouth three times daily for 10 days., Disp: 30 capsule, Rfl: 0 nystatin, bulk, 1 billion unit powder, 1 Application twice a day., Disp: 1 each, Rfl: 2 documented in this encounter Plan of Treatment DateTypeDepartmentCare Team (Latest Contact Info)Zfwejqotcpk11/03/2025 2:00 PM ESTOffice Visit [facility] [address] [place] [address] Sanjay Delarosa MD [address] [facility] [place] [address] 07/05/2025 2:30 PM ESTFollow-Up [facility] [address] [place] [address] Brissa Potter MD [address] [place] [address] NameTypePriorityAssociated DiagnosesOrder ScheduleCBC and differentialLabRoutine Infection Expected: 06/25/2025 (Approximate), Expires: 06/25/2026Sedimentation rateLab Routine Infection Expected: 06/25/2025 (Approximate), Expires: 06/25/2026documented as of this encounter Visit Diagnoses Diagnosis Infection- Primary Unspecified infectious and parasitic diseases Wrist pain, acute, left documented in this encounter Care Teams Team MemberRelationshipSpecialtyStart DateEnd Date Korin-Tari Morgan MD [address] [place] [address] PCP - General03/28/23 Daniel Ye, ARACELI [address] [place] [address] Nurse PractitionerUrology05/05/23documented as of this encounter
--- OUTSIDE RECORDS SUMMARY | 2025-06-25 16:10 | XMS_ITS | Encounter Summary ---
Author Organization [facility] Address [address] [place] [address] Care Team Providers Care General Surgeon Name Role Phone Tari Bello MD Primary Care Provider + [phone] Daniel Ye ABRASIVE SAWYER Unavailable [phone] Encounter Details DateTypeDepartmentCare Team (Latest Contact Info)Xcgmjqvxfdr67/17/2025Travel Social History Tobacco UseTypesPacks/DayYears UsedDateSmoking Tobacco: NeverPassive Smoke Exposure: NeverSmokeless Tobacco: NeverAlcohol UseStandard Drinks/WeekComments Not Currently0 (1 standard drink = 0.6 oz pure alcohol)occasionally has some wine 2x monthHumiliation, Afraid, Rape, and Kick questionnaireAnswerDate RecordedWithin the last year, have you been afraid of your partner or ex-partner?No02/29/2024Emotionally AbusedNot on file02/29/2024hysically Abused Not on file02/29/2024Sexually AbusedNot on file02/29/2024HQ-2AnswerDate RecordedPatient Health Questionnaire-2 [id number] and Gender InformationValueDate RecordedSex Assigned at BonfdXjzmas13/15/2024 6:35 AM ESTLegal CzwQcahme41/29/2022 9:32 PM EDTGender GaekbzqdMvkejz98/15/2024 6:35 AM ESTSexual OrientationHeterosexual or Qafsxxun79/15/2024 6:35 AM ESTdocumented as of this encounter Functional Status * BPAnswerDate of HzvdtjvrmbLholtn297/6806/14/2025 11:37 AM Brittany Nunez MA * PulseAnswerDate of BwcdpqqlblNgsxwi2056/17/2025 11:37 AM Brittany Nunez MA * Patient PositionAnswerDate of PpgqdckgkuYlnemuBpmwkxo88/17/2025 11:37 AM EDT Brittany Araujo MA * BPAnswerDate of VuxbnhtlxeTfjyar681/6806/14/2025 11:37 AM Brittany Nunez MA * PulseAnswerDate of LcviburzibHgotoo3460/17/2025 11:37 AM Brittany Nunez MA * RjU3CjyurwPqrd of SuuiguwbcvAtytqa18193/17/2025 11:37 AM Brittany Nunez MA * BP LocationAnswerDate of AssessmentAuthorRight arm06/14/2025 11:37 AM EDT Brittany Araujo MA * Patient PositionAnswerDate of QgazksjbkwSdfgjkKspduqt21/17/2025 11:37 AM EDT Brittany Araujo MA documented as of this encounter Plan of Treatment DateTypeDepartmentCare Team (Latest Contact Info)Iwtiqchmtie44/03/2025 2:00 PM ESTOffice Visit [facility] [address] [address] Sanjay Delarosa MD [address] [facility] [place] [address] 07/05/2025 2:30 PM ESTFollow-Up [facility] [address] [place] [address] Brissa Potter MD [address] [place] [address] documented as of this encounter Visit Diagnoses Not on filedocumented in this encounter Care Teams Team MemberRelationshipSpecialtyStart DateEnd Date Korin-Tari Morgan MD [address] [place] [address] PCP - General03/28/23 Daniel Ye CNP [address] [place] [address] Nurse PractitionerUrology05/05/23documented as of this encounter
--- OUTSIDE RECORDS SUMMARY | 2025-06-25 16:11 | XMS_ITS | Clinical Summary ---
Author Organization [facility] Address [address] [place] [address] Care Team Providers Care Director Of Web Marketing Name Role Phone GulshanEddie Tari Erika YT Primary Care Provider Brissa Potter MD Unavailable [phone] Allergies Active AllergyReactionsCriticalityNoted DateCommentsAscorbic Acid12/04/2021 Other Reaction(s): Unknown UfaarcwhxpcXaymg13/06/2022 Other Reaction(s): Hives, hives Parxbqmej87/06/2022 Other Reaction(s): dizziness, Other: See Comments Dizziness Hydrochlorothiazide-QqzjhupgbvzUylrd87/06/2022 Other Reaction(s): hives, hives Milk (Cow)01/15/2022 Other Reaction(s): Unknown Milk-Related Dhawxcjiw47/20/2022 Other Reaction(s): Unknown Mgcojg8201/15/2022 Other Reaction(s): syncope Cvjevlcvrxzin55/08/2022 Other Reaction(s): Unknown Rose12/04/2021 Other Reaction(s): Unknown EzcfpuLfqbjercrImdp29/06/2023Sodium Pvngcu2512/02/2021 Other Reaction(s): Other: See Comments, vertigo Vertigo Medications MedicationSigDispense QuantityRefillsLast FilledStart DateEnd DateStatus acetaminophen (Tylenol) 500 MG tablet Take 500 mg by mouth every 8 (eight) hours.Active ascorbic acid (Vitamin C) 500 MG tablet Take 500 mg by mouth in the morning.Active Mecperd-Bdotqftbtj-Cdzijnx D (Citracal +D3) 250-107-500 MG-MG-UNIT chewable tablet 1 (one) time each day at the same time.Active coenzyme Q-10 200 MG capsule Take 200 mg by mouth in the morning.Active docusate sodium (Colace) 100 MG capsule Take 100 mg by mouth in the morning.Active mineral oil liquid 1 (one) time each day at the same time.Active Multiple Vitamins-Minerals (Hair/Skin/Nails) tablet 1 (one) time each day at the same time.Active omega-3 (Fish Oil) 1000 MG capsule Take 1,000 mg by mouth 1 (one) time each day at the same time.Active levothyroxine (Synthroid, Levoxyl) 88 MCG tablet Indications:Acquired hypothyroidismTake 1 tablet (88 mcg) by mouth Daily 90 tablet 5Active lovastatin (Mevacor) 40 MG tablet Indications:HyperlipidemiaTake 40 mg by mouth at bedtimeActive lisinopril 10 MG tablet Indications:Hypertension, essentialTake 1 tablet (10 mg) by mouth in the morning and 1 tablet (10 mg) before bedtime. 180 tablet 5Active oxybutynin XL (Ditropan-XL) 5 MG 24 hr tablet Indications:OAB (overactive bladder)Take 1 tablet (5 mg) by mouth Daily 90 tablet 5Active carvedilol (Coreg) 3.125 MG tablet Indications:Hypertension, essentialTake 1 tablet (3.125 mg) by mouth in the morning and 1 tablet (3.125 mg) in the evening. Take with meals. 180 tablet 5Active amLODIPine (Norvasc) 2.5 MG tablet Indications:Hypertension, essentialTake 1 tablet (2.5 mg) by mouth Daily 90 tablet 5Active Active Problems ProblemNoted DateDiagnosed DateACP (advance care planning)07/12/2024 Overview (07/12/2024): Has a living will and POA. She prefers DNRCCA code status. Umbilical hernia without obstruction and without maxekvkd86/18/2024 Overview (02/14/2024): -She has seen Dr German. At appt 11/2023, he reported progressive abdominal pain at the location of her existing hernia. She has a constant, dull ache at site of hernia. She reports constipation despite aggressive bowel regimen of colace, milk laxative, metamucil and mineral oil. She does not have nausea, vomiting,. She has a fair appetite. Assessment & Plan (02/14/2024 9:09 AM EDT): Elective surgery planned for 02/20/2024 Adrenal rqgyrepruda78/26/2023 Overview (01/12/2024): -Imaging ~04/2023 demonstrated bilateral adrenal hyperplasia/nodularity- Dr. German (Gen Surg) recommended further workup to exclude endocrine tumor. She has since obtained endocrine testing and labs are within normal limits, including metanephrines, renin and aldosterone. 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 Every 3 months part of it gets changed out ---- 01/08/2025- she now has a suprapubic catheter and the InterStim. She reports that she is doing well-was just seen by Dr Potter on Tuesday Aortic valve dmabhjtz80/06/2023 Overview (01/10/2025): -She follows with Cardiology at [facility] -ECHO 12/29/2023: LVEF= 60-65%. Normal LV diastolic function; mild LVH. Moderate (MG 24 mmHg with mild PHTN (RVSP 39 mmHg) -She is asymptomatic. Recommendation for repeat ECHO in 1 year -ECHO done 01/07/2025 Assessment & Plan (01/10/2025 3:02 PM EDT): She reports Automation Qtp Tester was happy with her the ECHO since there had not been much change when compared to previous [place] grade 2 lwotokmri99/06/5282Zvvuvtac04/06/2023Renal cyst03/03/2023 Elevated alkaline phosphatase level03/03/2023 Assessment & Plan (03/03/2023 5:03 PM EDT): She has pain in both her right lower quadrant and in her iliac region. Try to obtain Ct abdomen andPelvis report. She is not having associated GI issues. Last colonoscopy was 2014. Reported history of polyps. Reports that she can never get another colonoscopy because I am allergic to the sodium in the bowel prep. Also on record review from Dr. Fischer. Patient was lost to follow up. He wanted to do a bone scan if AP elevations persisted. She was lost to follow up. Discussed with Korin Orozco. Will go ahead and order this today to rule out any bony complication from the cancer. Stage 3b chronic kidney hjxmngd4801/15/2022 Overview (02/14/2024): 11/2023 eGFR=43 12/2023 eGFR-38.7 Assessment & Plan (01/10/2025 2:54 PM EDT): -Will continue to monitor the renal function for any significant decline in eGFR. We will continue to work to optimally control any underlying conditions (DM and/or hypertension specifically) that are associated with worsening effects on kidney function and I will adjust medications as needed due to any changes in the kidney function. -Should microalbuminuria/proteinuria develop, we will discuss FDA-approved meds to decrease risk for progression to ESRD. Assessment & Plan (08/23/2024 8:39 PM EST): -We will continue to monitor your renal function for any significant decline in eGFR (which is a measure of how well your kidneys are working). We will continue to work to optimally control any underlying conditions that are associated with worsening effects on kidney function and I will adjust medications as needed due to any changes in your kidney function. Assessment & Plan (02/14/2024 5:16 PM EDT): Reminded her of importance of adequate hydration. Overall renal function has been relatively stable. Will continue to monitor Assessment & Plan (01/12/2024 2:40 PM EDT): -We will continue to monitor your renal function for any significant decline in eGFR (which is a measure of how well your kidneys are working). We will continue to work to optimally control any underlying conditions that are associated with worsening effects on kidney function and I will adjust medications as needed due to any changes in your kidney function. Assessment & Plan (07/24/2023 9:23 PM EST): -We will continue to monitor your renal function for any significant decline in eGFR (which is a measure of how well your kidneys are working). We will continue to work to optimally control any underlying conditions that are associated with worsening effects on kidney function and I will adjust medications as needed due to any changes in your kidney function. Uses brace01/15/2022 Overview (01/12/2024): Left lower leg Osteopenia, vvdmjg1112/21/20219904Otdoxfrbag18/09/2020Bundle branch block, right 06/27/2020Genitourinary syndrome of ghsvlbrzi94/21/2381Ehktbxpeb40/11/2019 Primary hippnqvq27/06/2017Bilateral tqfjfwua18/04/2017Acquired hypothyroidism 01/02/2013 Overview (01/10/2025): Prescribed levothyroxine 75 mcg daily 03/2023 TSH=5.07 and FT4=1.34 (both in therapeutic range) 06/2024: TSH=8.390 and FT4=1.07 (dose increased to 88 mcg daily) 12/2024 TSH=2.410 and FT4=1.22 Assessment & Plan (01/10/2025 2:54 PM EDT): Will continue current dose of levothyroxine. She is clinically and biochemically euthyroid. We will continue to monitor TFTs. Assessment & Plan (08/23/2024 8:47 PM EST): We are increasing the dose of the levothyroxine from 75 mcg to 88 mcg daily. We will need to repeat the thyroid labs (preferably before you get the refill in OCT 2024)... lab order has been transmitted to [facility]; and paper copy provided today. If you want to limit the time you have to wait at the lab, you can scheduled an appt (see paper attached to the lab order) Assessment & Plan (02/14/2024 5:14 PM EDT): At this time, patient is clinically euthyroid. We will continue current dose of levothyroxine and continue to monitor TFTs. She is to take her levothyroxine the AM of surgery with sip of water. Assessment & Plan (02/05/2024 11:28 AM EDT): At this time, patient is clinically euthyroid. We will continue current dose of levothyroxine and continue to monitor TFTs. Assessment & Plan (07/24/2023 9:32 PM EST): -At this time, patient is clinically euthyroid. We will continue current dose of Synthroid and continue to monitor TFTs. Hypertension, nagyczihn40/07/2013 Overview (07/13/2023): Prescribed amlodipine, carvedilol and lisinopril Assessment & Plan (01/10/2025 2:55 PM EDT): Her BP is doing fine on current rx. Based on review of patient's medications and current medical status; continuation of medications most appropriate. Compliance with medications and/or management recommendations encouraged. Monitor Assessment & Plan (07/12/2024 2:51 PM EST): Her BP is doing fine. Based on review of patient's medications and current medical status; continuation of medications most appropriate. Compliance with medications and/or management recommendations encouraged. Monitor Assessment & Plan (02/14/2024 5:19 PM EDT): BP is doing fine on current rx. Based on review of patient's medications and current medical status; continuation of medications most appropriate. Compliance with medications and/or management recommendations encouraged. Will continue to monitor. She will hold the lisinopril the AM of surgery, but will take the other 2 (amlodipine and carvedilol). Assessment & Plan (01/12/2024 2:41 PM EDT): Initial BP up a little, but improved upon recheck. Will continue current doses of above medications and monitoring to ensure adequate control. Assessment & Plan (07/24/2023 9:22 PM EST): -Reinforced importance of lifestyle modifications (healthy diet choices, regular exercise and weight management) for fci control of blood pressure. Limit salt. Follow the DASH diet. Advised of increased risk of complications ( for example: stroke, heart failure, heart attack, kidney damage or ) when BP not adequately controlled. BP goals reviewed and specific recommendations to achieve the goal/maintain goal BP discussed Osteoarthritis of ankle or foot01/02/2013History of left breast cancer Overview (07/13/2023): Prescribed arimidex Hyperlipidemia LDL goal <100 Overview (08/23/2024): Prescribed Lovastatin 02/14/2024: Per Cardiology note 12/27/2023, she is to increase the dose from 20 mg to 40 mg. She reports she was not aware of this. She reports the Automation Qtp Tester's office did call her in the last 1-2 days, so she will ask them if they sent in Rx 06/2024- she should be taking 40 mg of the lovastatin (not 60 mg) IU=216; TG=80; HDL=45; LDL=60 Assessment & Plan (01/10/2025 2:54 PM EDT): -The importance of dietary modification, regular cardiovascular activity and compliance with any prescribed medication for rodent exterminator management/control of lipids has been discussed. Since high cholesterol (especially LDL) is associated with an elevated risk of cardiovascular disease, which includes coronary artery disease, stroke and peripheral vascular disease, and has also been linked to diabetes and high blood pressure risks, by appropriately treating LDL, these risks can be reduced. Assessment & Plan (08/23/2024 8:45 PM EST): -The importance of dietary modification, regular cardiovascular activity and compliance with any prescribed medication for rodent exterminator management/control of lipids has been discussed. Since high cholesterol (especially LDL) is associated with an elevated risk of cardiovascular disease, which includes coronary artery disease, stroke and peripheral vascular disease, and has also been linked to diabetes and high blood pressure risks, by appropriately treating LDL, these risks can be reduced. Assessment & Plan (02/05/2024 11:28 AM EDT): -Reinforced importance of dietary modification, regular cardiovascular activity and compliance withany prescribed medication for fci management/control of lipids. High cholesterol (especially LDL) is associated with an elevated risk of cardiovascular disease. This includes coronary artery disease. stroke and peripheral vascular disease. High cholesterol has also been linked to diabetes and high blood pressure risks. By appropriately treating LDL, these risks can be reduced. Assessment & Plan (07/24/2023 9:22 PM EST): -Reinforced importance of dietary modification, regular cardiovascular activity and compliance withany prescribed medication for fci management/control of lipids. High cholesterol (especially LDL) is associated with an elevated risk of cardiovascular disease. This includes coronary artery disease. stroke and peripheral vascular disease. High cholesterol has also been linked to diabetes and high blood pressure risks. By appropriately treating LDL, these risks can be reduced. Bilateral carotid artery stenosis Overview (02/14/2024): Carotid U/S 12/29/2023: moderate right and mild left disease. Repeat U/S in 2 years Encounters DateTypeDepartmentCare JkemMowchrufwgo29/21/2025Telephone [facility] [address] [place] [phone] Tari Bello, DO 04/16/2025Refill [facility] [address] [place] [phone] Tari Bello, DO Hypertension, cpuiyqwom90/19/2025Telephone [facility] [address] [place] [address] Tari Bello, 04/16/2025Refill [facility] [address] [place] [address] Tari Bello, DO Hypertension, essentialfrom Last 3 Months Immunizations ImmunizationAdministration DatesNext DueInfluenza, High-dose Seasonal, Quadrivalent, Preservative Free05/30/2023,05/12/2022,06/08/2021Influenza, seasonal, lwxdyekkpk69/01/2023neumococcal Conjugate PCV 13008/29/2016,06/21/2015 Pneumococcal Polysaccharide WPPK5712Zoster, Fdbwddoxnyq41/04/2018, 05/15/2018Zoster, live03/04/2014 Family History Medical HistoryRelationNameCommentsStomach cancerFatherHeart diseaseMother HyperlipidemiaMotherHypertensionMotherStrokeMotherHeart diseaseOther8 siblings HypertensionOther8 siblingsColon cancerPaternal GrandmotherRelationNameStatus CommentsBrother1 brotherDaughterAlive2 daughtersFatherDeceasedMotherDeceased Other8 siblingsPaternal GrandmotherSister1 sisterSonAlive2 sons Social History Tobacco UseTypesPacks/DayYears UsedDateSmoking Tobacco: NeverSmokeless Tobacco: Never Tobacco Cessation:Counseling Given: No Alcohol UseStandard Drinks/WeekCommentsYes0 (1 standard drink = 0.6 oz pure alcohol)1-2 drinks monthly or lessAUDIT-CAnswerDate RecordedQ1: How often do you have a drink containing alcohol?Monthly or less07/14/2023Q2: How many drinks containing alcohol do you have on a typical day when you are drinking?1 or 2 07/14/2023Q3: How often do you have six or more drinks on one occasion?Never 07/14/2023Overall Financial Resource Strain (CARDIA)AnswerDate RecordedHow hard is it for you to pay for the very basics like food, housing, medical care, and heating?Not hard at all03/03/2023HQ-2AnswerDate RecordedPatient Health Questionnaire-2 Oqpgo075/14/2024CommentsUnknownSex and Gender InformationValueDate RecordedSex Assigned at BirthNot on fileLegal SexFemale 11/10/2022 6:51 PM EDTGender IdentityNot on fileSexual OrientationNot on file OccupationIndustryJob Start DateJob End DateWorked on farmNot on fileNot on file Not on file Last Filed Vital Signs Vital SignReadingTime TakenCommentsBlood Dkwnuyha850/6405 2:06 PM EDT Gnmqr604901/10/2025 2:06 PM ZUGBmxnxzclewy41.9 ??C (96.7 ??F)08/06/2024 10:39 AM ESTRespiratory Hxqy881501/02/2024 9:24 AM EDTOxygen Enjnkrchqr01%01/10/2025 2:06 PM EDTInhaled Oxygen Concentration--Atqoxk38 kg (154 lb 6.4 oz)01/10/2025 2:06 PM WBFLyjdut158 cm (5' 3 )03/03/2023 2:05 PM EDTBody Mass Index27.3507 2:05 PM EDT Plan of Treatment DateTypeDepartmentCare Team (Latest Contact Info)Fkcobuybdvl21/14/2025 1:00 PM ESTOffice Visit [facility] [address] [place] [phone] Tari Bello D, DO [address] [place] [address] Health MaintenanceDue DateLast DoneCommentsInfluenza Vaccine (#1)04/29/2025 05/07/2024, 05/30/2023, 04/29/2023, Additional history existsMedicare Annual Wellness (AWV)5109/11/2023, 3Pneumococcal Vaccine: 65+ Years Ocybbwcqt48/01/2017, 06/21/2015, 06/05/2010 Insurance Advance Directives * DNR-CCA (Latest Code Status on File) Date ActivatedDate SkhjhouyfwrDohlmhbh41/14/2024 2:32 PM Care Teams Team MemberRelationshipSpecialtyStart DateEnd Date Tari Bello DO [address] [place] [address] PCP - GeneralInternal Medicine03/02/23 Brissa Potter MD [address] [place] [address] [address] [place] [address] Consulting QwfwszjlvYvujwzc21/26/23
--- OUTSIDE RECORDS SUMMARY | 2025-06-25 16:11 | XMS_ITS | Clinical Summary ---
Author Organization [facility] Address [address] [place] [address] Phone Care Team Providers Care Outer Diameter Grinder Name Role Phone Katie Lauren Leary DO Primary Care Provider Social History Tobacco UseTypesPacks/DayYears UsedDateSmoking Tobacco: Never Assessed CommentsUnknownSex and Gender InformationValueDate RecordedSex Assigned at Not on fileLegal KhyXwjrmx58/26/2022 9:13 AM ESTGender IdentityNot on fileSexual OrientationNot on file Last Filed Vital Signs Vital SignReadingTime TakenCommentsBlood Mfztvuxl217/7803 4:10 PM EDT Xgjje129411/19/2021 4:04 PM EDTTemperature--Respiratory Rate--Oxygen Saturation-- Inhaled Oxygen Concentration--Htuaic02.1 kg (159 lb)11/19/2021 4:04 PM EDTHeight 160 cm (5' 3 )11/19/2021 4:04 PM EDTBody Mass Index28.1703 4:04 PM EDT Plan of Treatment Health MaintenanceDue DateLast DoneCommentsLipid Panel1939Medicare Annual Wellness Visit (AWV)1939DTaP/Tdap/Td Vaccines (1 - Tdap)12/16/1961 Pneumococcal Vaccine (1 of 1 - PCV)12/16/1989Zoster Vaccines (1 of 2)12/16/1989 Bone Density Scan12/16/2004RSV High Risk: (Elderly (60+) or Population) (1 - 1-dose 75+ series)04/20/2015Influenza Vaccine (#1)5COVID-19 Vaccine (2024- season)2025HIB VaccinesAged OutNo longer eligible based on patient's age to complete this topicHPV VaccinesAged OutNo longer eligible based on patient's age to complete this topicHepatitis A VaccinesAged OutNo longer eligible based on patient's age to complete this topicHepatitis B VaccinesAged OutNo longer eligible based on patient's age to complete this topic IPV VaccinesAged OutNo longer eligible based on patient's age to complete this topicMeningococcal VaccineAged OutNo longer eligible based on patient's age to complete this topicRotavirus VaccinesAged OutNo longer eligible based on patient's age to complete this topic Insurance MemberSubscriberPlan / Payer (Effective 2023-Present)Name:Humera Avalos Relation to Subscriber:SelfName:Humera Avalos Payer ID:[id number] (NAIC) Type:Not on file Address: [address] [place] [id number] Care Teams Team MemberRelationshipSpecialtyStart DateEnd Date Lauren Wilson DO [address] [place] [address] PCP - General08/29/99
--- OUTSIDE RECORDS SUMMARY | 2025-06-25 16:11 | XMS_ITS | Clinical Summary ---
Author Organization [facility] Address [address] [place] [address], [address] [place] [address] Care Team Providers Care Frit Maker Name Role Phone Unavailable Primary Care Provider Unavailabl e Social History Tobacco UseTypesPacks/DayYears UsedDateSmoking Tobacco: Never Assessed CommentsUnknownSex and Gender InformationValueDate RecordedSex Assigned at Not on fileLegal OhbDcvsbc29/10/2013 12:16 PM ESTGender IdentityNot on file Sexual OrientationNot on file Plan of Treatment Not on file
--- OUTSIDE RECORDS SUMMARY | 2025-06-25 16:11 | XMS_ITS | Encounter Summary ---
Author Organization [facility] Address [address] [place] [address] Care Team Providers Care Fleet Salesperson Name Role Phone Tari Bello MD Primary Care Provider + [phone] Daniel Ye DIRECTOR OF SPECIAL EVENTS Unavailable [phone] Encounter Details DateTypeDepartmentCare Team (Latest Contact Info)Qauvlwrvqpj35/27/2025Telephone [facility] [address] [place] [address] Bella Saxena MA Social History Tobacco UseTypesPacks/DayYears UsedDateSmoking Tobacco: NeverPassive Smoke Exposure: NeverSmokeless Tobacco: NeverAlcohol UseStandard Drinks/WeekComments Not Currently0 (1 standard drink = 0.6 oz pure alcohol)occasionally has some wine 2x monthHumiliation, Afraid, Rape, and Kick questionnaireAnswerDate RecordedWithin the last year, have you been afraid of your partner or ex-partner?No02/29/2024Emotionally AbusedNot on file02/29/2024hysically Abused Not on file02/29/2024Sexually AbusedNot on file02/29/2024HQ-2AnswerDate RecordedPatient Health Questionnaire-2 Yqozs783CommentsNoSex and Gender InformationValueDate RecordedSex Assigned at SvugiDdcipj21/15/2024 6:35 AM ESTLegal YswGdlwru24/29/2022 9:32 PM EDTGender AorlsmvqJjynoe33/15/2024 6:35 AM ESTSexual OrientationHeterosexual or Kjhztweg85/15/2024 6:35 AM ESTdocumented as of this encounter Miscellaneous Notes * Telephone Encounter - Bella Saxena MA - 06/25/2025 12:35 PM EDT Kristy called back to tell me patient has decided to drive to the office to show me her thumb. * Telephone Encounter - Bella Saxena MA - 06/25/2025 12:28 PM EDT I spoke with Kristy and she said patient now says her arm is fine, it's her thumb that's bothering her. Kristy thinks it could be cellulitis. She told me she will be trying to get Humera into her PCP for this. * Telephone Encounter - Bella Saxena MA - 06/24/2025 8:52 AM EDT Patient's niece Kristy called to make you aware that Humera's wrist is swollen and red. She hasn't seen it but Humera called her crying and she wasn't able to make out everything she said. I asked if she could email us a picture of it and they are not able to do that. Any recommendations? Thanks documented in this encounter Plan of Treatment DateTypeDepartmentCare Team (Latest Contact Info)Ykiipmzdvsz58/03/2025 2:00 PM ESTOffice Visit [facility] [address] [place] [phone] Sanjay Delarosa MD [address] [facility] [address] [place] [address] 07/05/2025 2:30 PM ESTFollow-Up [facility] [address] [place] [address] Brissa Potter MD [address] [place] [address] [address] [place] [address] documented as of this encounter Visit Diagnoses Not on filedocumented in this encounter Care Teams Team MemberRelationshipSpecialtyStart DateEnd Date Korin-Tari Morgan MD [address] [place] [address] PCP - General03/28/23 Daniel Ye CNP [address] [place] [address] Nurse PractitionerUrology05/05/23documented as of this encounter
--- OUTSIDE RECORDS SUMMARY | 2025-06-25 16:11 | XMS_ITS | Clinical Summary ---
Author Organization [facility] Address [address] [place] [id number] Care Team Providers Care Communications Technician Name Role Phone Korin GoodwinTari bartholomew Sapphire DO Primary Care Provi varun Allergies Active AllergyReactionsCriticalityNoted JblzAxnemkgwRddjqzqtdylCgfnx44/06/2022 ClonidineOther: See Opjhvtnl69/06/2022 Dizziness Triamterene-LhljhypitcmpgmoikrFqiey03/06/2022Milk Containing Products (Dairy) Wcouget2212/04/20218666OeignbitgdboeAtkdrwl97/08/2022ose OdsqSlcjxfn20/08/2022odium IodideOther: See Wihfejlv62/06/2022 Vertigo Medications MedicationSigDispense QuantityRefillsLast FilledStart DateEnd DateStatus BIOTIN ORAL Take by mouth.Active ascorbic acid, vitamin C, (VITAMIN C) 500 mg tablet Take 500 mg by mouth once daily.Active cmbxqzn-zfrwudjgl-pnidmks D3 500 mg-5 mcg (200 unit) per tablet Take 1 tablet by mouth once daily.Active docosahexaenoic acid/epa (FISH OIL ORAL) Take by mouth once daily.Active GARLIC ORAL Take 1,000 mg by mouth once daily.Active mineral oil external liquid Active docusate sodium (COLACE ORAL) Take by mouth.Active aspirin, enteric coated (ASPIRIN, ENTERIC COATED) 81 mg EC tablet Take 81 mg by mouth once daily.Active lovastatin (MEVACOR) 20 mg tablet Take 20 mg by mouth daily at bedtime.Active oxybutynin XL (DITROPAN XL) 5 mg 24 hr tablet Take 5 mg by mouth once daily.Active carvedilol (COREG) 3.125 mg tablet Take 3.125 mg by mouth twice daily with meals.Active lisinopril (ZESTRIL, PRINIVIL) 10 mg tablet Take 10 mg by mouth once daily.Active amLODIPine (NORVASC) 2.5 mg tablet Take by mouth once daily.Active levothyroxine (LEVOXYL) 75 mcg tablet Take 75 mcg by mouth daily before breakfast.Active acetaminophen (TYLENOL EXTRA STRENGTH) 500 mg tablet q 8 HR.Active HYDROcodone-acetaminophen (NORCO) 5-325 mg per tablet Hydrocodone-Acetaminophen Active 1 TAB PO Q6H 25 03November 24, 2021 10:10am 11/24/2021ctive anastrozole (ARIMIDEX) 1 mg tablet Take 1 tablet by mouth once daily. 90 tablet ctive Immunizations ImmunizationAdministration DatesNext Dueinfluenza (HD-IIV3) vaccine, age 65+ yr, high dose, trivalent, PF (FLUZONE HIGH-DOSE)06/19/2019,05/15/2018,05/26/2017, 06/21/2015influenza (HD-IIV4) vaccine, age 65+ yr, high dose, quadrivalent, PF (FLUZONE HIGH-DOSE)06/08/2021influenza (IIV3) vaccine, trivalent (AFLURIA, FLULAVAL, FLUVIRIN, FLUZONE)04/29/2020,05/21/2014,05/18/2013influenza (IIV3) vaccine, trivalent, PF (AFLURIA, FLUARIX, FLULAVAL, FLUVIRIN, FLUZONE)05/16/2020 ,05/15/2018,05/10/2016,05/20/2014influenza (IIV3) vaccine, trivalent, PF, intradermal (FLUZONE INTRADERMAL)05/10/2016influenza (IIV4) vaccine, age 6 mo - 64 yr, quadrivalent, PF (AFLURIA, FLUARIX, FLULAVAL, FLUZONE)05/26/2017 pneumococcal conjugate (PCV13) vaccine, 13 valent (PREVNAR 13)08/29/2016, 06/21/2015pneumococcal polysaccharide (PPV23) vaccine, 23 valent (PNEUMOVAX 23) 06/05/2010zoster (RZV) vaccine, recombinant (SHINGRIX)08/01/2018,05/15/2018 zoster (ZVL) vaccine, live (ZOSTAVAX)08/01/2018,05/15/2018,03/04/2014 Family History Medical HistoryRelationCommentsCancerFatherStrokeMotherRelationStatusComments FatherDeceasedMotherDeceased Social History Tobacco UseTypesPacks/DayYears UsedDateSmoking Tobacco: NeverSmokeless Tobacco: NeverAlcohol UseStandard Drinks/WeekCommentsNot Currently0 (1 standard drink = 0.6 oz pure alcohol)PHQ-2AnswerDate RecordedPHQ-2 apehw073rea Deprivation IndexAnswerDate RecordedNational Score (1-100), lower number is lower iimf570909/23/2022State Score (1-10), lower number is lower riskNot on file 3Data from: https://www.neighborhoodatlas.medicine.[facility].edu/. Last address used for owow[address]hrw[address]CommentsNoSex and Gender InformationValueDate RecordedSex Assigned at BirthNot on fileLegal Sex Awvqzo7007/30/2012 9:28 AM ESTGender IdentityNot on fileSexual OrientationNot on file Last Filed Vital Signs Vital SignReadingTime TakenCommentsBlood Bveuxsit503/5405 3:28 PM EDT Mmrdr8081 3:28 PM SLYYzfjtwesnoc91.3 ??C (97.3 ??F)01/18/2022 3:28 PM EDTRespiratory Degs4711 3:28 PM EDTOxygen Ufzpmbndah72%01/18/2022 3:28 PM EDTInhaled Oxygen Concentration--Jjworl55.7 kg (162 lb 6.4 oz)01/18/2022 3:28 PM ZPELjxdps223.7 cm (5' 4.84 )01/18/2022 3:28 PM EDTBody Mass Index27.16 01/18/2022 3:28 PM EDT Plan of Treatment Health MaintenanceDue DateLast DoneCommentsAnxiety Hablwarqu07/20/1958Depression Owoawdxxp78/20/1958DTaP,Tdap,Td Vaccine (1 - Tdap)12/16/1958Bone Density Qbkeyxjpk59/20/2005RSV Vaccine (1 - 1-dose 75+ series)12/16/2014dvance Directive Uggsxoorvx02/01/2025Diabetes Hwdfxdjin86ovid-19 Vaccine (1 - 2024-26 season)2025Influenza Vaccine (#1)2025 06/08/2021, 05/16/2020, 04/29/2020, Additional history existsPneumococcal Vaccine: 50+Mmlamwlnh14/01/2017, 06/21/2015, 06/05/2010Shingrix VaccineCompleted 08/01/2018, 08/01/2018, 05/15/2018, Additional history exists Procedures Procedure NamePriorityDate/TimeAssociated DiagnosisCommentsCOMPREHENSIVE METABOLIC UYBAEZyxfwfi38/23/2022 3:24 PM EDT Cancer of breast, intraductal, left from Last 3 Months or Most Recently Relevant to Health Maintenance Results * (ABNORMAL) COMP METABOLIC PANEL (01/18/2022 3:24 PM EDT)ComponentValueRef RangeTest MethodAnalysis TimePerformed AtPathologist SignatureProtein, Total 8.06.3 - 8.0 g/dL01/18/2022 4:03 PM [facility]TNOR[facility] Albumin4.13.9 - 4.9 g/dL01/18/2022 4:03 PM EDTNORTHCOAST [facility] LABCalcium, Total10.08.5 - 10.2 mg/dL01/18/2022 4:03 PM EDTNORTHCO[facility] LABBilirubin, Total0.30.2 - 1.3 mg/dL01/18/2022 4:03 PM EDTNORTOAKLAWN [facility] LABAlkaline Tpmnmzotmll287(H)34 - 123 U/L 01/18/2022 4:03 PM [facility]TNORTHCO[facility] HLCZXI71(H)13 - 35 U/L 01/18/2022 4:03 PM [facility] GRHMMM135 - 38 U/L 01/18/2022 4:03 PM [facility] DNZYrpypth5150 - 99 mg/dL01/18/2022 4:03 PM [facility] LABComment: The [place] Diabetes Association (ADA) provides guidance for cutoff values for fasting glucose andrandom glucose. The ADA defines fasting as no caloric intake for at least 8 hours. Fasting plasma glucose results between 100 to 125 mg/dL indicate increased risk for diabetes (prediabetes). Fasting plasma glucose results greater than or equal to 126 mg/dL meet the criteria for diagnosis of diabetes. In the absence of unequivocal hyperglycemia, results should be confirmed by repeat testing. In a patient with classic symptoms of hyperglycemia or hyperglycemic crisis, random plasma glucose results greater than or equal to 200 mg/dL meet the criteria for diagnosis of diabetes. Reference: Standards of Medical Care in Diabetes 2016, [place] [employer] Association. Diabetes Care. 2016.39(Suppl 1). BUN23(H)7 - 21 mg/dL01/18/2022 4:03 PM [facility] Creatinine1.32(H)0.58 - 0.96 mg/dL01/18/2022 4:03 PM [facility] AQKHovvof670142 - 144 mmol/L01/18/2022 4:03 PM [facility] LABPotassium4.93.7 - 5.1 mmol/L01/18/2022 4:03 PM EDT [facility] ILXHyyymqir41079 - 105 mmol/L01/18/2022 4:03 PM [facility] KGOUA38514 - 30 mmol/L01/18/2022 4:03 PM [facility] LABAnion Gap8(L)9 - 18 mmol/L01/18/2022 4:03 PM [facility] LABEstimated Glomerular Filtration Rate40(L)>=60 mL/min/1.73m 01/18/2022 4:03 PM EDTNORTHCOAST [facility] LABComment:Estimated Glomerular Filtration Rate (eGFR) is calculated using the 2020 CKD-EPI creatinine equation. This equation utilizes serum creatinine, sex, and age as parameters. The creatinine assay has traceable calibration to isotope dilution- mass spectrometry. Refer to KDIGO guidelines for clinical interpretation. In patients with unstable renal function, e.g. those with acute kidney injury, the eGFRmay not accurately reflect actual GFR.Specimen (Source)Anatomical Location / LateralityCollection Method / VolumeCollection TimeReceived TimeBloodBLOOD SPECIMEN / UnknownVenipuncture / Reluzdv5401/18/2022 3:24 PM EDT01/18/2022 3:24 PM EDT Narrative Authorizing ProviderResult TypeResult StatusSiddshahana Fischer MDLABORATORYFinal ResultPerforming OrganizationAddressCity/State/ZIP CodePhone Number [facility] [address] [place] [phone] from Last 3 Months or Most Recently Relevant to Health Maintenance Insurance Care Teams Team MemberRelationshipSpecialtyStart DateEnd Date Tari Gasca DO [address] [place] [id number] PCP - GeneralInternal Medicine12/04/21
--- OUTSIDE RECORDS SUMMARY | 2025-06-25 16:11 | XMS_ITS ---
Author Organization [facility] Address [address] [place] [address] Care Team Providers Care Item Processing Clerk Name Role Phone Tari Bello MD Primary Care Provider [phone] Daniel Ye BUFFER COPPER Unavailable [phone] Active Problems ProblemNoted DateDiagnosed DateAbdominal pain of unknown cause06/25/2025 Overview (06/25/2025): Problem List clean-up per request of Phys. EHR Cmte Acute cystitis with crndascur69/28/4024Jajauosyjab92/28/2025 Overview (06/25/2025): Problem List clean-up per request of Phys. EHR Cmte Bladder outlet tuyofxrkkyp70/28/2025 Overview (06/25/2025): Problem List clean-up per request of Phys. 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 EHR Cmte Other acute postprocedural pain06/25/2025 Overview (06/25/2025): Problem List clean-up per request of Phys. EHR Cmte Rash and nonspecific skin ylttaznp07/28/2025 Overview (06/25/2025): Problem List clean-up per request of Phys. EHR Cmte Status post left qkhovkmdje93/28/2025 Overview (06/25/2025): Problem List clean-up per request of Phys. EHR Cmte Urinary catheter imfikwvbedgn33/28/2025 Overview (06/25/2025): Problem List clean-up per request of Phys. EHR Cmte Shortness of xwttcf4706/14/2025Other chest pain06/14/2025nkle pain06/12/2025 Bilateral carotid artery eroijxru01/15/2025 Overview (06/12/2025): Carotid U/S 12/29/2023: moderate right and mild left disease. Repeat U/S in 2 years Feeling of incomplete bladder dxmwxjqo42/15/2025Head yepbxz1106/12/2025History of left breast piczfb4006/12/2025 Overview (06/12/2025): Prescribed arimidex Aekbckzdfzccgei78/15/2310Ksxkkeg62/15/2025Urinary /15/2025 Nonrheumatic aortic valve rxmawfnr13/20/2025Ventral hernia without obstruction or cdgnijzi70/13/2024Umbilical hernia without obstruction and without gangrene 4Preop cardiovascular exam12/27/2023ruit of left carotid artery 12/27/2023ortic ejection zdggcm8912/27/2023rimary btrjhwjscesq87/30/2024Mixed hyrowthjlisrhi52/30/2024Urge incontinence of urine08/03/2023drenal hyperplasia 07/24/2023 Overview (06/12/2025): -Imaging ~04/2023 demonstrated bilateral adrenal hyperplasia/nodularity- Dr. German (Gen Surg) recommended further workup to exclude endocrine tumor. She has since obtained endocrine testing and labs are within normal limits, including metanephrines, renin and aldosterone. Thyroid panel normal as well Kjjmhgnwgvrh86/24/2023tonic ldglgjy4205/12/2023Weak urinary kuedsq5305/12/2023 Atonic neurogenic vfyqtmy65/ Overview (06/12/2025): Suprapubic cath placed 05/2023 after she presented [...] just seen by Dr Potter on Tuesday Incomplete bladder lbtehyig94/15/0983Eyjcfjdm38/06/2023Elevated alkaline phosphatase level03/03/2023aden-Walker grade 2 uhnuphtkz07/06/2023Renal cyst 03/03/2023Stage 3b chronic kidney hobkern5001/15/2022 Overview (06/12/2025): 11/2023 eGFR=43 12/2023 eGFR-38.7 Uses brace01/15/2022 Overview (06/12/2025): Left lower leg Female stress sbbuizxfunch77/13/2022steopenia, yvpczx6612/21/2021Neuropathy 08/06/2020Bundle branch block, right06/27/2020Atrophic tthyqlcfs65/21/2020 Ftzucalks23/11/2019Primary mmeqmhln26/06/2017Bilateral ouqoewyz28/04/2017 Acquired vfkpstfhnkqlga98/07/2013 Overview (06/12/2025): Prescribed levothyroxine 75 mcg daily 03/2023 TSH=5.07 and FT4=1.34 (both in therapeutic range) 06/2024: TSH=8.390 and FT4=1.07 (dose increased to 88 mcg daily) 12/2024 TSH=2.410 and FT4=1.22 Current Treatment and Therapy Plans No current plan information found. Past Treatment and Therapy Plans No past plan information found. Lifetime Dose Tracking * ChemicalLifetime DoseAutomatic EntryManual EntryFluoro Time3.02 minutes0 minutes3.02 minutesAir Fxqrj479 mGy0 fWk353 mGy
--- OUTSIDE RECORDS SUMMARY | 2025-06-25 16:11 | XMS_ITS | Clinical Summary ---
Author Organization [facility] tem Address [id number] [address] [place] [address] Care Team Providers Care Layboy Operator Name Role Phone Unavailable Primary Care Provider Unavailabl e Social History Tobacco UseTypesPacks/DayYears UsedDateSmoking Tobacco: Never Assessed CommentsUnknownSex and Gender InformationValueDate RecordedSex Assigned at Not on fileLegal ImtTaiola04/16/2023 11:29 AM EDTGender IdentityNot on file Sexual OrientationNot on file Plan of Treatment Health MaintenanceDue DateLast DoneCommentsDepression Pjycgnpuc64/20/1952Tobacco Awyajjzta38/20/1952DTaP,Tdap and Td Vaccines (1 - Tdap)12/16/1958Fall Risk Ijxfakyhw92/20/2005Influenza Wvzhpzs98/, 06/08/2021, 06/08/2021, Additional history existsZoster (Shingles) VaccineCompleted 08/01/2018, 05/15/2018, 03/04/2014 Medical Devices Not on file Insurance * Guarantor: [employer] EAccount TypeRelation to PatientDate of BirthPhone Billing AddressPersonal/JvnmiwLkjo75/20/1941 [address] [address]
--- OUTSIDE RECORDS SUMMARY | 2025-06-25 16:11 | XMS_ITS | Clinical Summary ---
Author Organization [facility] Address [address] [place] [address] Care Team Providers Care Internetworking Technician Name Role Phone Tari Bello MD Primary Care Provider [phone] Daniel Ye TAX ECONOMIST Unavailable [phone] Allergies Active AllergyReactionsCriticalityNoted DateCommentsAscorbic Acid12/04/2021 Other Reaction(s): Unknown PpzbjutankqOjfgp18/06/2022 Other reaction(s): Hives Other Reaction(s): Hives, hives SuphsepdgAimnrmsem06/06/2022 Other reaction(s): Other: See Comments Dizziness Other Reaction(s): dizziness, Other: See Comments Dizziness NkyiDydxqzs82/20/2022 Other Reaction(s): Unknown Cwewsx6801/15/2022 Other reaction(s): syncope Other Reaction(s): syncope Wrjpfudlvfbst23/08/2022 Other reaction(s): Unknown Other Reaction(s): Unknown KxsxlrDifxqwrdrFoug33/06/2023Sodium Tmfioj7912/02/2021 Other reaction(s): Other: See Comments, vertigo Vertigo Other Reaction(s): Other: See Comments, vertigo Vertigo ErcwnzpuezxWzpjq22/16/2023Triamterene-YgmnlypbwghrpkzzoqFsgum16/06/2022 Other reaction(s): hives Other Reaction(s): hives, hives Medications MedicationSigDispense QuantityRefillsLast FilledStart DateEnd DateStatus coenzyme Q-10 (Co Q-10) 10 mg capsule Take by mouth.06/06/2019Active multivit-min/ferrous fumarate (MULTI VITAMIN ORAL) 1 (one) time each day at the same time.Active omega 3-dbo-gmi-fish oil 300 mg-100 mg- 150 mg-1,000 mg capsule Take 1,000 mg by mouth.Active amLODIPine (Norvasc) 2.5 mg tablet Take 1 tablet by mouth in the morning.Active carvedilol (Coreg) 3.125 mg tablet TAKE TABLET BY MOUTH DIRECTED TWICE DAILY06/06/2019Active cholecalciferol (Vitamin D-3) 25 MCG (1000 UT) capsule Take 1 capsule every day by oral route.Active nystatin, bulk, 1 billion unit powder Indications:Skin rash1 Application twice a day. 1 each ctive levothyroxine (Synthroid, Levoxyl) 75 mcg tablet Take 1 tablet by mouth in the morning.10/17/2023ctive lisinopril 10 mg tablet 10 mg in the morning and at bedtime.11/16/2021ctive calcium carbonate-vitamin D3 600 mg-5 mcg (200 unit) tablet 1 tablet.11/16/2021ctive oxyBUTYnin XL (Ditropan-XL) 5 mg 24 hr tablet Take 5 mg by mouth in the morning.01/01/2025tive lovastatin (Mevacor) 40 mg tablet Indications:Mixed hyperlipidemiaTake 1 tablet (40 mg) by mouth at bedtime. 90 tablet 6Active cephalexin (Keflex) 500 mg capsule Indications:InfectionTake 1 capsule (500 mg) by mouth three times daily for 10 days. 30 capsule /5Active ascorbic acid (Vitamin C) 500 mg tablet Take 500 mg by mouth in the morning.06/25/2025Discontinued aspirin 325 mg tablet Take 325 mg by mouth if needed.Discontinued(Med List Cleanup) cod liver oiL capsule Take by mouth.Discontinued(Therapy completed) docusate sodium (Colace) 100 mg capsule Take by mouth.Discontinued(Therapy completed) lactulose 10 gram/15 mL (15 mL) solution Indications:Constipation, unspecified constipation typeTake 15 mL by mouth once daily as directed. 473 mL /Discontinued(Med List Cleanup) diphenhydrAMINE (BENADryl) 50 mg tablet Take 50 mg by mouth if needed at bedtime for itching.06/18/2025Discontinued(Med List Cleanup) ibuprofen 200 mg tablet Take 200 mg by mouth every 6 (six) hours if needed for mild pain (1-3 pain score).06/18/2025Discontinued(Med List Cleanup) estradiol (Estrace) 0.01 % (0.1 mg/gram) vaginal cream Indications:Urge incontinence of urine,Incomplete bladder emptyingInsert 1 g twice a week by vaginal route do not use applicator 42.5 g Discontinued(Med List Cleanup) estradiol (Estrace) 0.01 % (0.1 mg/gram) vaginal cream Indications:Vaginal atrophyDisregard three times a week use 2 times per week Tuesday and Tuesday use a pea size amount and insert vaginally do not use applicator 42.5 g Discontinued(Med List Cleanup) estradiol (Estrace) 0.01 % (0.1 mg/gram) vaginal cream Indications:Vaginal atrophyApply pea size on the tip of the finger nightly for 3 weeks, then 2 times per week. 42.5 g Discontinued(Med List Cleanup) lovastatin (Mevacor) 40 mg tablet Indications:Mixed hyperlipidemiaTAKE 1 TABLET BY MOUTH AT BEDTIME 30 tablet Discontinued(Reorder) Active Problems ProblemNoted DateDiagnosed DateAbdominal pain of unknown cause06/25/2025 Overview (06/25/2025): Problem List clean-up per request of Phys. EHR Cmte Acute cystitis with miaeklljt09/28/8276Wcnsvatrjto28/28/2025 Overview (06/25/2025): Problem List clean-up per request of Phys. EHR Cmte Bladder outlet jyvfnzcakkb04/28/2025 Overview (06/25/2025): Problem List clean-up per request of Phys. 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 EHR Cmte Other acute postprocedural pain06/25/2025 Overview (06/25/2025): Problem List clean-up per request of Phys. EHR Cmte Rash and nonspecific skin arznmzly14/28/2025 Overview (06/25/2025): Problem List clean-up per request of Phys. EHR Cmte Status post left /28/2025 Overview (06/25/2025): Problem List clean-up per request of Phys. EHR Cmte Urinary catheter phppafbwgkzm58/28/2025 Overview (06/25/2025): Problem List clean-up per request of Phys. EHR Cmte Shortness of ikjvff4806/14/2025Other chest pain06/14/2025nkle pain06/12/2025 Bilateral carotid artery /15/2025 Overview (06/12/2025): Carotid U/S 12/29/2023: moderate right and mild left disease. Repeat U/S in 2 years Feeling of incomplete bladder xrnpheya66/15/2025Head nlvcob7006/12/2025History of left breast yoodyr4506/12/2025 Overview (06/12/2025): Prescribed arimidex Nslvruwsrgxohho10/15/9074Yikqdib63/15/2025Urinary pacjkzfke74/15/2025 Nonrheumatic aortic valve kxrparft80/20/2025Ventral hernia without obstruction or srjpmecj65/13/2024Umbilical hernia without obstruction and without gangrene 12/27/2023reop cardiovascular exam12/27/2023ruit of left carotid artery 12/27/2023ortic ejection lkpfxq8312/27/2023rimary qpzeyeetbozm59/30/2024Mixed shnzbuttuyaflm71/30/2024Urge incontinence of urine08/03/2023drenal hyperplasia 07/24/2023 Overview (06/12/2025): -Imaging ~04/2023 demonstrated bilateral adrenal hyperplasia/nodularity- Dr. German (Gen Surg) recommended further workup to exclude endocrine tumor. She has since obtained endocrine testing and labs are within normal limits, including metanephrines, renin and aldosterone. 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 Overview (06/12/2025): Suprapubic cath placed 05/2023 after [...] by Dr Potter on Tuesday Incomplete bladder lakvovkg91/15/0809Dqvhsftu22/06/2023Elevated alkaline phosphatase level03/03/2023aden-Walker grade 2 yhvkompji40/06/2023Renal cyst 03/03/2023Stage 3b chronic kidney ssxsfkv1301/15/2022 Overview (06/12/2025): 11/2023 eGFR=43 12/2023 eGFR-38.7 Uses brace01/15/2022 Overview (06/12/2025): Left lower leg Female stress tzhzieubrotk33/13/2022steopenia, gpankx7112/21/2021Neuropathy 08/06/2020Bundle branch block, right06/27/2020Atrophic lqfvlxrfo12/21/2020 Kaagpaqpy23/11/2019Primary pccdegiz28/06/2017Bilateral pujwcgml36/04/2017 Acquired akbvuitqbwslex56/07/2013 Overview (06/12/2025): Prescribed levothyroxine 75 mcg daily 03/2023 TSH=5.07 and FT4=1.34 (both in therapeutic range) 06/2024: TSH=8.390 and FT4=1.07 (dose increased to 88 mcg daily) 12/2024 TSH=2.410 and FT4=1.22 Encounters DateTypeDepartmentCare BcolJwhqkfefutb50/28/2025 2:45 PM EDTOffice Visit [facility] [address] [place] [address] Cy Wiggins MD Infection (Primary Dx); Wrist pain, acute, left06/24/2025Telephone [facility] [address] [place] [facility] [place] [address] Bella Saxena MA 06/18/2025 10:30 AM EDT - 06/18/2025 11:30 AM EDTSurgery [facility] [address] [place] [address] Sanjay Delarosa MD Coronary pueajrsnxgj25/21/2025 7:36 AM EDT - 06/18/2025 2:55 PM EDTHospital Encounter [facility] [address] [place] [address] Sanjay Delarosa MD Nonrheumatic aortic valve stenosis; Shortness of breath; Other chest pain Discharge Disposition: Home or Self Care ()06/18/20259741Naqhyl54/17/2025 11:30 AM EDTFollow-Up [facility] [address] [place] [address] Sanjay Delarosa MD Nonrheumatic aortic valve stenosis (Primary Dx); Shortness of breath; Other chest pain; Mixed hyperlipidemia; Primary lahhfuhnkwva82/17/9947Bowacy11/23/2025 2:00 PM EDTFollow-Up [facility] [address] [place] [address] Brissa Potter MD Urinary retention (Primary Dx); Atonic bladder; Encounter for suprapubic catheter care (CMS/HCC)04/22/2025[facility] [address] [place] [phone] Rica Gaona PA-C Mixed wuaqwtybvyddgf99/25/2025Orders Only [facility] [address] [place] [phone] Candy La MA Nonrheumatic aortic valve stenosis (Primary Dx); Shortness of roowgj9804/19/2025[facility] [address] [place] [phone] Rica Gaona PA-C Mixed vqtdqycbrffdhr07/20/2025Orders Only [facility] [address] [place] [address] Rica Gaona PA-C Nonrheumatic aortic valve stenosis (Primary Dx); SOB (shortness of breath)04/09/2025 2:15 PM EDTFollow-Up [facility] [address] [place] [address] Brissa Potter MD Urinary retention (Primary Dx); Atonic bladder; Encounter for suprapubic catheter care (CMS/HCC)04/09/2025Telephone [facility] [address] [place] [phone] Kristal Savage MA Cardiac Emmqpsf3504/08/2025Telephone [facility] [address] [place] [address] Dianna Bradley MA 03/29/2025Refill [facility] [address] [place] [address] Rica Gaona PA-C Mixed hyperlipidemiafrom Last 3 Months Family History RelationNameStatusCommentsFatherDeceasedMotherDeceased Social History Tobacco UseTypesPacks/DayYears UsedDateSmoking Tobacco: NeverPassive Smoke Exposure: NeverSmokeless Tobacco: Never Tobacco Cessation:Counseling Given: Not Answered Alcohol UseStandard Drinks/WeekCommentsNot Currently0 (1 standard drink = 0.6 oz pure alcohol)occasionally has some wine 2x monthHumiliation, Afraid, Rape, and Kick questionnaireAnswerDate RecordedWithin the last year, have you been afraid of your partner or ex-partner?No02/29/2024Emotionally AbusedNot on file 02/29/2024hysically AbusedNot on file02/29/2024Sexually AbusedNot on file 02/29/2024HQ-2AnswerDate RecordedPatient Health Questionnaire-2 Score0 05/21/2025CommentsNoSex and Gender InformationValueDate RecordedSex Assigned at BzpnpHpjmiy76/15/2024 6:35 AM ESTLegal LdoFfbqhv25/29/2022 9:32 PM EDTGender YqdlqddoOmxcio00/15/2024 6:35 AM ESTSexual OrientationHeterosexual or Khbhwtdq28/15/2024 6:35 AM EST Last Filed Vital Signs Vital SignReadingTime TakenCommentsBlood Dgljzgwm178/6206/25/2025 2:43 PM EDT Lnxxh311206/25/2025 2:43 PM HBEIzdjfnglxzz97.6 ??C (97.9 ??F)04/10/2024 9:38 AM EDTRespiratory Loti8396 2:45 PM EDTOxygen Ktgxfapoli54%06/25/2025 2:43 PM EDTInhaled Oxygen Concentration--Jrjruc79.9 kg (143 lb)06/25/2025 2:43 PM EDT Aiszjq525 cm (5' 3 )06/25/2025 2:43 PM EDTBody Mass Index25.331 2:43 PM EDT Plan of Treatment DateTypeDepartmentCare Team (Latest Contact Info)Gbqwiujmsjy23/03/2025 2:00 PM ESTOffice Visit [facility] [address] [place] [address] Sanjay Delarosa MD [address] [place] [phone] 07/05/2025 2:30 PM ESTFollow-Up [facility] [address] [place] [address] Brissa Potter MD [address] [place] [address] Health MaintenanceDue DateLast DoneCommentsMedicare Annual Wellness (AWV) 1940Adult Qijshkf02/20/1963COVID-19 Vaccine (2024- season)2025 Influenza Vaccine (#1)509/04/2024, 05/30/2023, 04/29/2023, Additional history existsDepression Scygojnfn98Fall Risk Screening Pneumococcal Vaccine: 50+ FngigPswbbmpcl60/01/2017, 06/21/2015, 06/05/2010Zoster PynrfzppDcaluomns42/04/2018, 05/15/2018, 03/04/2014 HIB VaccinesAged OutNo longer eligible based on patient's age to complete this topicHPV VaccinesAged OutNo longer eligible based on patient's age to complete this topicIPV VaccinesAged OutNo longer eligible based on patient's age to complete this topicMeningococcal B VaccineAged OutNo longer eligible based on patient's age to complete this topicMeningococcal VaccineAged OutNo longer eligible based on patient's age to complete this topicRotavirus VaccinesAged Out No longer eligible based on patient's age to complete this topic Medical Devices ImplantedTypeAreaManufacturerDevice IdentifierShelf Expiration DateModel / Serial / LotInterstim Surescan Mri Lead Kit Implanted:Qty: 1 on 09/29/2023 [facility]: [id number]/07/[id number] / / [id number] X Implanted:Qty: 1 on 10/13/2023 by [facility]: AzxrEtkwjxavq35/28/[id number] / [id number] / Procedures Procedure NamePriorityDate/TimeAssociated DiagnosisCommentsRIGHT HEART CATH Edcgooy3606/18/2025 12:50 PM EDT Nonrheumatic aortic valve stenosis Shortness of breath Other chest pain LEFT HEART BTXWJuklats83/21/2025 12:50 PM EDT Nonrheumatic aortic valve stenosis Shortness of breath Other chest pain CORONARY BMHGRGPMDQAEtllccj08/21/2025 12:50 PM EDT Nonrheumatic aortic valve stenosis Shortness of breath Other chest pain %XXX7Uwxckki12/21/2025 12:38 PM EDT TRANSESOPHAGEAL ECHO (OLIVER) W/ LIMITED DOPPLER AND COLOR KGUCMzywxao21/21/2025 9:53 AM EDT Nonrheumatic aortic valve stenosis ECG 12-ZPPLFxqwffo36/21/2025 8:54 AM EDT from Last 3 Months Results * CORONARY ANGIOGRAPHY, LEFT HEART CATH, [...] informed consent. ??she was brought to the systems testing laboratory technician in a fasting state. The right neck area was prepped and draped in usual fashion. Micropuncture technique was used for access under ultrasound guidance into the right internal jugular vein. ??A 6-Russian x 11 cm sheath was placed. ?? The left wrist area was prepped and draped in usual fashion. Micropuncture technique was used for access in the radial artery. ??A 5-Russian x 11 cm sheath was placed. ??Verapamil was given through the sheath, and heparin was administered intravenously. ?? A 6-Russian Mckenzie catheter was used for right heart catheterization and measurement of pressures and calculation of cardiac output using the estimated Oswald method. ??Mckenzie catheter was removed. Bilateral selective coronary angiography was then performed using 4-Russian JL4 diagnostic catheter for engagement of the left coronary artery and 4-Russian JR4 diagnostic catheter for engagement of the [...] [R06.02]Other chest pain [R07.89] Authorizing ProviderResult TypeResult Katt Delarosa [facility] CARDIAC CATH PROCEDURESFinal Result * (ABNORMAL) %HbO2 (06/18/2025 12:38 PM EDT)ComponentValueRef RangeTest Method Analysis TimePerformed AtPathologist FnejbstscI9Je%68.5(L)90.0 - 95.0 % 06/18/2025 12:38 PM [facility] ([facility])Specimen (Source)Anatomical Location / LateralityCollection Method / VolumeCollection TimeReceived Time BloodVenous blood specimen / Cgyowqw8606/18/2025 12:38 PM EDT1 12:38 PM EDT Narrative Authorizing ProviderResult TypeResult Katt STINSON POINT OF CARE TEST DOCKED DEVICE UNSOLICITED RESULTSFinal ResultPerforming Organization AddressCity/State/ZIP CodePhone Number [facility] ([place]) [address] [place] [address] * TRANSESOPHAGEAL ECHO (OLIVER) W/ LIMITED DOPPLER AND COLOR FLOW (06/18/2025 9:53 AM EDT)Anatomical RegionLateralityModalityOtherSpecimen (Source)Anatomical Location / LateralityCollection Method / VolumeCollection TimeReceived Time 06/18/2025 8:45 AM EDT Narrative 06/18/2025 7:31 PM EDT [facility] [address] [place] [address] [phone] (fax) Transesophageal Echocardiogram-[facility] Name: HUMERA ROWE Study Date: 06/18/2025 08:45 AM B/P: 142 mmHg/57 mmHg HR: Date of : 1940 Location: [facility] Height: 63 in. Age: 84 year(s) Patient Room: [facility] Weight: 160 lb. Gender: Female Patient Status: OutPt BSA: 1.76 m2 Indication: Aortic Valve Stenosis Examination: OLIVER/Limited Doppler/CFI Image Quality: Good Patient Consent: Informed, written consent was obtained for the procedure Exam Location: A OLIVER was performed in the Lead Software Test Engineer without complications Anesthesia Pharyngeal anesthesia with viscous [...] reviewed the examination Procedure Staff Reading Group: [facility] Cooper Helper: Sunita Davenport RDCS ??Ordering Physician: Sanjay Delarosa MD Procedure Note Sanjay Delarosa MD - 06/18/2025 1 [facility] [address] [place] [address] [phone] (fax) Transesophageal Echocardiogram-[facility] Name: HUMERA ROWE Study Date: 06/18/2025 08:45 AM B/P: 142 mmHg/57 mmHg HR: Date of : 1940 Location: [facility] Height: 63 in. Age: 84 year(s) Patient Room: [facility] Weight: 160 lb. Gender: Female Patient Status: OutPt BSA: 1.76 m2 Indication: Aortic Valve Stenosis Examination: OLIVER/Limited Doppler/CFI Image Quality: Good Patient Consent: Informed, written consent was obtained for the procedure Exam Location: A OLIVER was performed in the Lead Software Test Engineer without complications Anesthesia Pharyngeal anesthesia with viscous [...] reviewed the examination Procedure Staff Reading Group: [facility] Cooper Helper: Sunita Davenport RDCS Ordering Physician: Sanjay Delarosa MD Authorizing ProviderResult TypeResult StatusSanjay Delarosa [facility] ECHO PROCEDURESFinal Result * Electrocardiogram, 12-lead (06/18/2025 8:54 AM EDT)ComponentValueRef RangeTest MethodAnalysis TimePerformed AtPathologist SignatureVentricular Qkxk49QAJSE MUSEAtrial Dvhx24ISTJZ MUSEPR Ljoyerid996rqKN MUSEQRS BGWPVYES897dcAP MUSEQT Aopimyxm577txPM MUSEQTC CALCULATION(BAZETT)443msGE MUSEP Enma69sbipdgsNL MUSE W-Tmqt-0henikqoUM MUSET Wave Qiuh50iyepzuoDI MUSESpecimen (Source)Anatomical Location / LateralityCollection Method / VolumeCollection TimeReceived Time 06/18/2025 8:27 AM EDT1 1:28 PM EDT Impressions GE MUSE - 06/18/2025 1:28 PM EDT Sinus bradycardia Right bundle branch block Abnormal ECG When compared with ECG of 27-DEC-2023 16:57, No significant change was found Confirmed by [place] NGUYEN SAMER J. ([id number]) on 06/18/2025 1:28:26 PM Narrative Procedure Note Mehdi Nguyen MD - 06/18/2025 IMPRESSION: Sinus bradycardia Right bundle branch block Abnormal ECG When compared with ECG of 27-DEC-2023 16:57, No significant change was found Confirmed by [place] NGUYEN SAMER J. ([id number]) on 06/18/2025 1:28:26 PM Authorizing ProviderResult TypeResult Katt Delarosa MDECG ORDERABLES Final ResultPerforming OrganizationAddressCity/State/ZIP CodePhone Number GE MUSE from Last 3 Months Insurance Advance Directives * Full Code (Latest Code Status on File) Date ActivatedDate GrkgolxznksWysvohbm29/21/2025 12:52 PM10 4:56 PM * Full Code Date ActivatedDate InactivatedComments02/20/2024 7:01 AM02/20/2024 1:36 PM Care Teams Team MemberRelationshipSpecialtyStart DateEnd Date Tari Bello MD [address] [place] [address] PCP - General03/28/23 Daniel Ye, TAX ECONOMIST [address] [place] [address] Nurse PractitionerUrology05/05/23
--- OUTSIDE RECORDS SUMMARY | 2025-06-25 16:11 | XMS_ITS | Encounter Summary ---
Author Organization [facility] Address [address] [place] [address] Care Team Providers Care Printer Slotter Operator Name Role Phone Tari Bello MD Primary Care Provider + -[phone] Daniel Ye SPLITTER HAND Unavailable [phone] Encounter Details DateTypeDepartmentCare Team (Latest Contact Info)Hgxcspcflbj46/21/2025Travel Social History Tobacco UseTypesPacks/DayYears UsedDateSmoking Tobacco: NeverPassive Smoke Exposure: NeverSmokeless Tobacco: NeverAlcohol UseStandard Drinks/WeekComments Not Currently0 (1 standard drink = 0.6 oz pure alcohol)occasionally has some wine 2x monthHumiliation, Afraid, Rape, and Kick questionnaireAnswerDate RecordedWithin the last year, have you been afraid of your partner or ex-partner?No02/29/2024Emotionally AbusedNot on file02/29/2024hysically Abused Not on file02/29/2024Sexually AbusedNot on file02/29/2024HQ-2AnswerDate RecordedPatient Health Questionnaire-2 Qbwhf811CommentsNoSex and Gender InformationValueDate RecordedSex Assigned at GoaloLtqwrv73/15/2024 6:35 AM ESTLegal TcpDefgdm55/29/2022 9:32 PM EDTGender AwejvvrtEdxeow59/15/2024 6:35 AM ESTSexual OrientationHeterosexual or Iuqovwhv81/15/2024 6:35 AM ESTdocumented as of this encounter Functional Status * QuestionAnswerDate of OvplxmhhhqBgtcyaRQ127/561 2:45 PM Jackie Anguiano RNPulse4706/18/2025 2:45 PM Jackie Anguiano RN * Pain Assessment TimerQuestionAnswerDate of AssessmentAuthorRestart Pain Assessment LgymwBsd00/21/2025 2:45 PM Jackie Anguiano RN * Sepsis Model ScoresQuestionAnswerDate of AssessmentAuthorEarly Detection of Sepsis Score1. 2:46 PM Hortensia Denton * Pain AssessmentQuestionAnswerDate of AssessmentAuthorPain AssessmentNo/denies pain06/18/2025 2:45 PM Jackie Anguiano RN * QuestionAnswerDate of AssessmentAuthorPulse rate from Plethysmogram (bpm)46 06/18/2025 2:30 PM Jackie Anguiano RN * Vital SignsQuestionAnswerDate of YboupmdmiwZyttdoDC757/561 2:45 PM Jackie Anguiano QBLflgh0913/21/2025 2:45 PM Jackie Anguiano RNResp16 06/18/2025 2:45 PM Jackie Anguiano RNSpO21001 2:45 PM Jackie Anguiano RNMAP (mmHg)7606/18/2025 2:30 PM Jackie Anguiano RN * Peripheral VascularQuestionAnswerDate of AssessmentAuthorPulsesLeft pedal;Right pedal;Left posterior tibial;Right posterior gnqyux0906/18/2025 7:41 AM Jackie Anguiano RNEdemaOther (Comment)06/18/2025 8:11 AM Jackie Anguiano RN * RLE Neurovascular AssessmentQuestionAnswerDate of AssessmentAuthorRight Posterior Tibial Pulse+110 8:11 AM Jackie Anguiano RNRight Pedal Pulse+210/ 8:11 AM Jackei Anguiano RN * LLE Neurovascular AssessmentQuestionAnswerDate of AssessmentAuthorLeft Posterior Tibial Pulse+110 8:11 AM Jackie Anguiano RNLeft Pedal Pulse+210 8:11 AM Jackie Anguiano RN * RespiratoryQuestionAnswerDate of AssessmentAuthorBilateral Breath Sounds Clear;Jqlnsmkdhx47/21/2025 7:41 AM Jackie Anguiano RNRespiratory Effort Zpdxuswuv99/21/2025 7:41 AM Jackie Anguiano RNRespiratory Depth/Rhythm Psurgnx1106/18/2025 7:41 AM Jackie Anguiano RNBreath SoundsBilateral breath dhazhf0406/18/2025 7:41 AM Jackie Anguiano RN * NeurologicalQuestionAnswerDate of AssessmentAuthorLevel of ConsciousnessAlert 06/18/2025 12:00 PM Lauren Hernandez RNOrientation LevelOriented X4 06/18/2025 12:00 PM Lauren Hernandez RNCognitionAppropriate judgement 06/18/2025 12:00 PM Lauren Hernandez RNSpeechClear1 12:00 PM Lauren Brown RN * Pain AssessmentQuestionAnswerDate of AssessmentAuthorPain AssessmentNo/denies pain06/18/2025 2:45 PM Jackie Anguiano RN * [place] Suicide Severity Rating ScaleQuestionAnswerDate of AssessmentAuthor1. Have you wished you were or wished you could go to sleep and not wake up? No06/18/2025 7:41 AM Jackie Anguiano RN2. Have you actually had any thoughts of killing yourself?No06/18/2025 7:41 AM Jackie Anguiano RN6. Have you ever done anything, started to do anything, or prepared to do anything to end your life?No06/18/2025 7:41 AM Jackie Anguiano RN * Risk of SuicideAnswerDate of AssessmentAuthorNo Risk06/18/2025 7:41 AM EDT Jackie Crawley RN * Modified AldreteQuestionAnswerDate of SvxjqpaxbaFqyllwGuvmedvj885/21/2025 2:43 PM EDTHrynJackie emmanuel, WEQkvnzczvnxr266/21/2025 2:43 PM EDTHrynJackie emmanuel, RN Zmjyihiukhh861/21/2025 2:43 PM EDTHrynJackie emmanuel, BOZgvmppykzkggq189/21/2025 2:43 PM EDTHrynciJackie ayala, RNOxygen Sfirydxxig486/21/2025 2:43 PM EDJackie Frost, RNModified Antoine Lyjah7103/21/2025 2:43 PM Jackie Anguiano RN documented as of this encounter Mental Status * Cai Agitation Sedation ScaleQuestionAnswerEntry DateAutrRichmond Agitation Sedation Scale (RASS)- 12:42 PM Duke Riley RN * Modified AldreteQuestionAnswerEntry WfewFpenarVcqxxvyw778/21/2025 2:43 PM EDT HrJackie sam, NCRchcogqvzww196/21/2025 2:43 PM EDJackie Frost RN Bwimziyhmzr979/21/2025 2:43 PM EDTHrynJackie emmanuel, NNQbdhynghviziv492/21/2025 2:43 PM EDJackie Frost, RNOxygen Yseuiewcps214/21/2025 2:43 PM EDJackie Frost RNModified Antoine Wgeft6680/21/2025 2:43 PM Jakcie Anguiano RN documented in this encounter Plan of Treatment DateTypeDepartmentCare Team (Latest Contact Info)Dmlgaolrere39/03/2025 2:00 PM ESTOffice Visit [facility] [address] [phone] Sanjay Delarosa MD [address] [facility] [address] [place] [phone] 07/05/2025 2:30 PM ESTFollow-Up [facility] [address] [place] [address] Brissa Potter MD [address] [place] [address] [address] [place] [address] documented as of this encounter Visit Diagnoses Not on filedocumented in this encounter Care Teams Team MemberRelationshipSpecialtyStart DateEnd Date Korin-Tari Morgan MD [address] [facility] [address] [place] [address] PCP - General03/28/23 Daniel Ye CNP [address] [place] [address] Nurse PractitionerUrology05/05/23documented as of this encounter
[2025-06-25 17:14] LABS: Hematocrit 34.4 % (36.0-48.0); Hemoglobin 11.8 g/dL (12.0-16.0); Immature Granulocytes Abs Auto 0.01 10^3/uL (0.00-0.03); Immature Granulocytes Pct Auto 0.2 % (0.0-0.5); Lymphocytes Absolute Auto 1.8 10^3/uL (1.2-3.8); Mean Corpuscular HGB Conc 34.3 g/dL (29.9-35.2); Mean Corpuscular Hemoglobin 33.8 pg (26.7-34.0); Mean Corpuscular Volume 98.6 fL (81.0-99.0); Platelet Count 124 10^3/uL (150-450); Red Blood Count 3.49 10^6/uL (4.20-5.40); White Blood Count 6.1 10^3/uL (4.0-11.0)
== END 2025-06-25 15:58 | disposition home or self-care (01) ==
PROVIDERS: Visit Provider Internal Medicine Cardiovascular Disease
DX: B99.9 Unspecified infectious disease (principal)
CPT/HCPCS: 36415; 85025; 85652